=== PATIENT | male | born 1980 | race Hispanic/Latino ===

== ENCOUNTER 2018-04-17 15:04 | Emergency (ER) | payer MEDICAID ==
[2018-04-17 15:14] VITALS: BP 140/86; PULSE 98; RESP 18; TEMP 98.1; O2SAT 99
--- NOTE | 2018-04-17 15:33 | ED PDOC ---
HPI: Abdomen Time Seen by Provider: 04/17/18 15:30 Chief Complaint (Nursing): Abdominal Pain Chief Complaint (Provider): ABD PAIN History Per: Patient (37 Y/O MALE HERE FOR EVALUATION OF ONGOING INTERMITTENT ABDOMINAL PAIN. HAS BEEN SEEN BY GI DR. CAVAZOS AND HAD CT OF ABD YESTERDAY. NOTES H/O HIATAL HERNIA SX 10/2017. NOTES PAIN CHANGES LOCATION IN ABDOMEN AND HE ALSO NOTED NUMBNESS AND PIN/NEEDLES LEFT LEG WITH SITTING DOWN TODAY.) Past Medical History Reviewed: Historical Data, Nursing Documentation, Vital Signs Vital Signs: Last Vital Signs Temp 98.1 F 04/17/18 15:11 Pulse 98 H 04/17/18 15:11 Resp 18 04/17/18 15:11 BP 140/86 04/17/18 15:11 Pulse Ox 99 04/17/18 15:34 - Family History Family History: States: No Known Family Hx - Allergies Allergies/Adverse Reactions: Allergies Allergy/AdvReac Type Severity Reaction Status Date / Time famotidine Allergy RASH Verified 04/17/18 15:10 FISH Allergy RASH Verified 04/17/18 15:15 pantoprazole Allergy RASH Verified 04/17/18 15:10 tree nut Allergy RASH Verified 04/17/18 15:10 Review of Systems ROS Statement: Except As Marked, All Systems Reviewed And Found Negative Physical Exam - Reviewed Nursing Documentation Reviewed: Yes Vital Signs Reviewed: Yes - Physical Exam Appears: Positive for: Well, Non-toxic, No Acute Distress Head Exam: Positive for: ATRAUMATIC, NORMAL INSPECTION, NORMOCEPHALIC Skin: Positive for: Normal Color, Warm, DRY Eye Exam: Positive for: EOMI, Normal appearance, PERRL ENT: Positive for: Normal ENT Inspection Neck: Positive for: Normal, Painless ROM Cardiovascular/Chest: Positive for: Regular Rate, Rhythm Respiratory: Positive for: CNT, Normal Breath Sounds Gastrointestinal/Abdominal: Positive for: Normal Exam, Soft Back: Positive for: Normal Inspection Extremity: Positive for: Normal ROM Neurologic/Psych: Positive for: Alert, Oriented, Other (5/5 LOWER EXTREMITY STRENGTH; 5/5 DORSOFLEXION AND PLANTARFLEXION) - Laboratory Results Result Diagrams: 04/17/18 16:03 04/17/18 16:03 - ECG O2 Sat by Pulse Oximetry: 99 - Progress ED Course And Treament: CT REPORT REVIEWED FROM YESTERDAY 04/16/2018 Disposition - Clinical Impression Clinical Impression: Abdominal pain - Patient ED Disposition Is Patient to be Admitted: No - Disposition Disposition: Routine/Home Disposition Time: 16:33 Condition: FAIR Instructions: Acute Abdomen (Belly Pain), Adult (DC), Ulcer and Gastritis Diet Forms: [employer] (Welsh), [facility] ED School/Work Excuse
[2018-04-17 16:10] LABS: BASO % 0.5 % (0.0-2.0); EOS # 0.2 K/uL (0.0-0.7); EOS % 2.6 % (0.0-4.0); HEMOGLOBIN 15.5 g/dL (12.0-18.0); LYMPH # 1.7 K/uL (1.0-4.3); LYMPH % 27.7 % (20.0-40.0); MEAN CELL VOLUME 85.7 fl (80.0-94.0); MEAN CORPUSCULAR HEMOGLOBIN 30.3 pg (27.0-31.0); MEAN CORPUSCULAR HGB CONC 35.3 g/dL (33.0-37.0); MEAN PLATELET VOLUME 8.3 fl (7.2-11.7); MONO # 0.6 K/uL (0.0-0.8); MONO % 9.8 % (0.0-10.0); NEUT # 3.7 K/uL (1.8-7.0); NEUT % 59.4 % (50.0-75.0); NRBC % 0.7 % (0.0-0.0); RBC 5.11 Mil/uL (4.40-5.90); RED CELL DISTRIBUTION WIDTH 13.6 % (11.5-14.5); WHITE BLOOD COUNT 6.2 K/uL (4.8-10.8)
[2018-04-17 16:20] LABS: URINE AMORPHOUS SEDIMENT RARE /ul (<OCC); URINE BILIRUBIN NEGATIVE (NEGATIVE); URINE BLOOD NEGATIVE (NEGATIVE); URINE CLARITY SLIGHTY-CLOUDY (Clear); URINE COLOR YELLOW (YELLOW); URINE GLUCOSE (UA) NEG (Normal); URINE LEUKOCYTE ESTERASE NEG Leu/uL (Negative); URINE PROTEIN NEGATIVE (NEGATIVE)
[2018-04-17 16:24] LABS: ALB/GLOB RATIO 1.5 (1.0-2.1); ALBUMIN 4.4 g/dL (3.5-5.0); ALT/SGPT 51 U/L (21-72); AST/SGOT 30 U/L (17-59); BLOOD UREA NITROGEN 16 mg/dl (9-20); CALCIUM 9.1 mg/dL (8.4-10.2); GFR AFRICAN-AMERICAN > 60; GFR NON-AFRICAN AMERICAN > 60; LIPASE 68 U/L (23-300)
== END 2018-04-17 17:13 | disposition home or self-care (01) ==
LOC: H.ER 15:04
DX: R10.9 Unspecified abdominal pain (principal); R20.2 Paresthesia of skin

== ENCOUNTER 2018-06-04 00:13 | Emergency (ER) | payer MEDICAID ==
[2018-06-04 00:37] VITALS: BP 126/75; PULSE 72; RESP 16; TEMP 97.9; O2SAT 97
[2018-06-04 01:14] LABS: BASO % 0.7 % (0.0-2.0); EOS # 0.3 K/uL (0.0-0.7); EOS % 5.2 % (0.0-4.0); HEMOGLOBIN 14.5 g/dL (12.0-18.0); LYMPH # 2.1 K/uL (1.0-4.3); LYMPH % 34.6 % (20.0-40.0); MEAN CELL VOLUME 87.8 fl (80.0-94.0); MEAN CORPUSCULAR HGB CONC 34.2 g/dL (33.0-37.0); MEAN PLATELET VOLUME 9.1 fl (7.2-11.7); MONO # 0.7 K/uL (0.0-0.8); MONO % 12.1 % (0.0-10.0); NEUT # 2.8 K/uL (1.8-7.0); NEUT % 47.4 % (50.0-75.0); NRBC % 0.1 % (0.0-0.0); RBC 4.82 Mil/uL (4.40-5.90); RED CELL DISTRIBUTION WIDTH 13.6 % (11.5-14.5)
[2018-06-04 01:19] LABS: ALB/GLOB RATIO 1.6 (1.0-2.1); ALBUMIN 4.2 g/dL (3.5-5.0); ALT/SGPT 36 U/L (21-72); AST/SGOT 29 U/L (17-59); BLOOD UREA NITROGEN 16 mg/dl (9-20); CALCIUM 9.1 mg/dL (8.4-10.2); GFR AFRICAN-AMERICAN > 60; GFR NON-AFRICAN AMERICAN > 60
--- NOTE | 2018-06-04 01:25 | ED PDOC ---
Lower Extremity Pain/Injury Time Seen by Provider: 06/04/18 00:15 Chief Complaint (Nursing): Lower Extremity Problem/Injury Chief Complaint (Provider): left leg pain History Per: Patient History/Exam Limitations: no limitations Onset/Duration Of Symptoms: Days (x4 months), Worse Since (x2 days) Current Symptoms Are (Timing): Still Present Additional Complaint(s): Michele Alcantara is a 37 year old male, with no significant past medical history , who presents to the emergency department complaining of a left leg pain onset for x4 months but worst for the past x2 days. Patient reports he did have some back pain for which he had an outpatient MRI done that showed some disc herniation. He hasn't taken any pain medications. He denies any fever, chills, vomiting, weakness, saddle anesthesia, recent trauma or injuries. No further medical complaints. pt follows w orthopedics and p rimary doc. PMD: None provided. Past Medical History Reviewed: Historical Data, Nursing Documentation, Vital Signs Vital Signs: Last Vital Signs Temp 97.9 F 06/04/18 00:34 Pulse 72 06/04/18 00:34 Resp 16 06/04/18 00:34 BP 126/75 06/04/18 00:34 Pulse Ox 97 06/04/18 00:34 - Medical History PMH: No Chronic Diseases - Surgical History Surgical History: No Surg Hx - Family History Family History: States: No Known Family Hx - Social History Alcohol: None Drugs: Denies - Immunization History Hx Tetanus Toxoid Vaccination: No Hx Influenza Vaccination: No Hx Pneumococcal Vaccination: No - Allergies Allergies/Adverse Reactions: Allergies Allergy/AdvReac Type Severity Reaction Status Date / Time famotidine Allergy RASH Verified 04/17/18 15:10 FISH Allergy RASH Verified 04/17/18 15:15 pantoprazole Allergy RASH Verified 04/17/18 15:10 tree nut Allergy RASH Verified 04/17/18 15:10 Review of Systems ROS Statement: Except As Marked, All Systems Reviewed And Found Negative Constitutional: Negative for: Fever, Chills Gastrointestinal: Negative for: Vomiting Musculoskeletal: Positive for: Leg Pain (left ) Neurological: Negative for: Weakness (saddle anesthesia) Physical Exam - Reviewed Nursing Documentation Reviewed: Yes Vital Signs Reviewed: Yes - Physical Exam Appears: Positive for: Non-toxic, No Acute Distress Head Exam: Positive for: ATRAUMATIC, NORMAL INSPECTION, NORMOCEPHALIC Skin: Positive for: Normal Color, Warm, Dry Eye Exam: Positive for: Normal appearance, EOMI, PERRL Neck: Positive for: Painless ROM, Supple Cardiovascular/Chest: Positive for: Regular Rate, Rhythm. Negative for: Murmur Respiratory: Positive for: Normal Breath Sounds. Negative for: Respiratory Distress Gastrointestinal/Abdominal: Positive for: Normal Exam, Soft. Negative for: Tenderness, Guarding, Rebound Back: Positive for: Normal Inspection. Negative for: L CVA Tenderness, R CVA Tenderness, Vertebral Tenderness Extremity: Positive for: Normal ROM (upper and lower extremities), Capillary Refill (normal). Negative for: Tenderness, Pedal Edema, Calf Tenderness, Deformity, Swelling Neurologic/Psych: Positive for: Alert, Oriented (x3), Gait (steady). Negative for: Motor/Sensory Deficits (no focal deficits), Aphasia, Facial Droop - Laboratory Results Result Diagrams: 06/04/18 01:00 06/04/18 01:00 - ECG O2 Sat by Pulse Oximetry: 97 (RA) Pulse Ox Interpretation: Normal Medical Decision Making Medical Decision Making: Time: 00:35 Initial Impression: left leg pain Initial Plan: --CMP --CBC w/ differential --Toradol 30 mg IV --Reevaluation 02:21 -Labs normal, patient is feeling better 02:24 -Upon provider reevaluation patient is feeling better, is medically stable, and requires no further treatment in the ED at this time. Patient will be discharged home. Counseling was provided and all questions were answered regarding diagnosis and need for follow up with orthopedist. There is agreement to discharge plan. Return if symptoms persist or worsen. ----- Scribe Attestation: Documented by Doron Byrnes, acting as a scribe for Irving Au MD. Provider Scribe Attestation: All medical record entries made by the Scribe were at my direction and personally dictated by me. I have reviewed the chart and agree that the record accurately reflects my personal performance of the history, physical exam, medical decision making, and the department course for this patient. I have also personally directed, reviewed, and agree with the discharge instructions and disposition. Disposition - Clinical Impression Clinical Impression: Chronic leg pain - Patient ED Disposition Is Patient to be Admitted: No Counseled Patient/Family Regarding: Studies Performed, Diagnosis, Need For Followup - Disposition Disposition: Routine/Home Disposition Time: 02:24 Condition: STABLE Additional Instructions: follow up with your primary doctor/orthopedist in 1-2 days for reevaluation take tylenol or motrin for pain return to the ED with any worsening or concerning symptoms Instructions: Chronic Pain Forms: [employer] (Kittitian)
== END 2018-06-04 02:57 | disposition home or self-care (01) ==
LOC: H.ER 00:13
DX: M79.605 Pain in left leg (principal); G89.29 Other chronic pain
CPT/HCPCS: 80053; 85025; 96374; 99283; J1885

== ENCOUNTER 2018-06-12 16:36 | Emergency (ER) | payer MEDICAID ==
[2018-06-12 16:56] VITALS: BP 118/76; PULSE 71; RESP 16; TEMP 98.4; O2SAT 97
--- NOTE | 2018-06-12 17:44 | ED PDOC ---
HPI: Back Time Seen by Provider: 06/12/18 16:56 Chief Complaint (Nursing): Lower Extremity Problem/Injury Chief Complaint (Provider): Back Pain, L leg pain History Per: Patient History/Exam Limitations: no limitations Onset/Duration Of Symptoms: Other (x few months) Current Symptoms Are (Timing): Intermittent Episodes Additional History Per: Prior Records Additional Complaint(s): 37-year-old male presents to ED for evaluation of left lower back pain that radiates into the left lower extremity, ongoing for the past few months. Patient states he recently has been managing current symptoms with Naproxen, however his pain was unrelieved after his last dose at 6am this morning prompting ED visit. (-) falls, (-) trauma. Patient reports he has an upcoming MRI for his back on Saturday (06/14/18) and an upcoming Orthopedic appointment with Dr. Nash on Saturday (06/16/18). Otherwise, (-) fever, (-) chills, (-) numbness, (-) weakness, (-) urinary symptoms, (-) abdominal pain, (-) n/v/d, (- ) rash, (-) saddle anesthesia, (-) incontinence (-) chest pain (-) SOB. Patient was seen here on June 04 for the same complaint; labs were unremarkable and patient was advised to follow up outpatient. PMD: Bandar Man Past Medical History Reviewed: Historical Data, Nursing Documentation, Vital Signs Vital Signs: Last Vital Signs Temp 98.4 F 06/12/18 16:51 Pulse 71 06/12/18 16:51 Resp 16 06/12/18 16:51 BP 118/76 06/12/18 16:51 Pulse Ox 97 06/12/18 16:51 - Medical History PMH: Chronic Pain (back) - Surgical History Surgical History: No Surg Hx - Family History Family History: States: Unknown Family Hx - Social History Current smoker - smoking cessation education provided: No Alcohol: None Drugs: Denies - Home Medications Home Medications: Ambulatory Orders Medication Instructions Recorded Acetaminophen [Acetaminophen 8 650 mg PO Q8 #28 tablet.er 06/12/18 Hour] Meloxicam [Mobic] 15 mg PO DAILY #10 tab 06/12/18 - Allergies Allergies/Adverse Reactions: Allergies Allergy/AdvReac Type Severity Reaction Status Date / Time famotidine Allergy RASH Verified 06/12/18 16:49 FISH Allergy RASH Verified 06/12/18 16:49 pantoprazole Allergy RASH Verified 06/12/18 16:49 tree nut Allergy RASH Verified 06/12/18 16:49 Review of Systems ROS Statement: Except As Marked, All Systems Reviewed And Found Negative Constitutional: Negative for: Fever, Chills Gastrointestinal: Negative for: Nausea, Vomiting, Diarrhea Genitourinary Male: Negative for: Dysuria, Incontinence, Hematuria Musculoskeletal: Positive for: Back Pain. Negative for: Other (saddle anesthesia) Skin: Negative for: Rash Neurological: Negative for: Weakness, Numbness Physical Exam - Reviewed Nursing Documentation Reviewed: Yes Vital Signs Reviewed: Yes - Physical Exam Appears: Positive for: Well, Non-toxic, No Acute Distress Head Exam: Positive for: ATRAUMATIC, NORMOCEPHALIC Skin: Positive for: Normal Color, Warm, Dry Eye Exam: Positive for: EOMI, PERRL ENT: Positive for: Other (Mucus membranes moist. Airway patent, (-) stridor. ) Cardiovascular/Chest: Positive for: Regular Rate, Rhythm Respiratory: Positive for: Normal Breath Sounds. Negative for: Respiratory Distress Gastrointestinal/Abdominal: Positive for: Soft. Negative for: Tenderness, Distended, Guarding, Rebound Back: Positive for: Other ((+) Left paralumbar and left sciatic notch tenderness ). Negative for: L CVA Tenderness, R CVA Tenderness, Vertebral Tenderness Extremity: Positive for: Normal ROM. Negative for: Deformity Neurologic/Psych: Positive for: Alert, Oriented (x3), Gait ((+) Ambulatory with steady gait). Negative for: Aphasia, Facial Droop - ECG O2 Sat by Pulse Oximetry: 97 (RA) Pulse Ox Interpretation: Normal Medical Decision Making Medical Decision Makin-year-old male with [id number] back pain / sciatica Plan: - Flexeril 10 mg PO (Not driving) - Toradol 30 mg IM - Re-evaluation 1819 On re-evaluation, patient reports improvement of symptoms. On exam, patient remains AAOx3, in no acute distress. Neck is supple, lungs CTA, cardiac RRR, abdomen is soft and non-tender, neuro exam shows no focal findings. VSS, stable for discharge. Diagnostic results d/w the patient in great detail. Dx of acute on chronic back pain, sciatica d/w the patient. Based on history, exam and diagnostic results plan will be for discharge and outpatient follow up as scheduled. Advised to follow up with primary care physician/ortho without fail. Advised to take medication as prescribed. Return to the emergency room at any time for any new or worsening symptoms. Patient states he fully agrees with and understands discharge instructions. States that he agrees with the plan and disposition. Verbalized and repeated discharge instructions and plan. I have given the patient opportunity to ask any additional questions. Scribe Attestation: Documented by Domingo Lyn, acting as a scribe for Corin Steele PA-C. Provider Scribe Attestation: All medical record entries made by the Scribe were at my direction and personally dictated by me. I have reviewed the chart and agree that the record accurately reflects my personal performance of the history, physical exam, medical decision making, and the department course for this patient. I have also personally directed, reviewed, and agree with the discharge instructions and disposition. Disposition - Clinical Impression Clinical Impression: Chronic back pain, Radicular pain of lower extremity, Sciatica - Patient ED Disposition Is Patient to be Admitted: No Counseled Patient/Family Regarding: Diagnosis, Need For Followup, Rx Given - Disposition Referrals: Bandar Man MD [Family Provider] - Disposition: Routine/Home Disposition Time: 18:21 Condition: STABLE Additional Instructions: FOLLOW UP WITH PMD/ORTHO PLANNED RETURN TO ED WITH ANY NEW OR WORSENING SYMPTOMS. FOLLOW UP FOR MRI EVALUATION SCHEDULED ON SATURDAY. Prescriptions: Acetaminophen [Acetaminophen 8 Hour] 650 mg PO Q8 #28 tablet.er Meloxicam [Mobic] 15 mg PO DAILY #10 tab Instructions: Sciatica, Chronic Pain, Radiculopathy Forms: [employer] (Armenian) Print Language: MOZAMBICAN - POA Present On Arrival: None
== END 2018-06-12 18:48 | disposition home or self-care (01) ==
LOC: H.ER 16:36
DX: G89.29 Other chronic pain (principal); M54.32 Sciatica, left side
CPT/HCPCS: 96372; 99282; J1885

== ENCOUNTER 2018-08-02 14:14 | Emergency (ER) | payer SELFPAY ==
[2018-08-02 14:32] VITALS: BP 130/75; PULSE 90; RESP 18; TEMP 98.3; O2SAT 96
[2018-08-02 15:32] LABS: BASO % 0.3 % (0.0-2.0); EOS % 0.1 % (0.0-4.0); HEMOGLOBIN 15.8 g/dL (12.0-18.0); LYMPH # 1.1 K/uL (1.0-4.3); LYMPH % 11.1 % (20.0-40.0); MEAN CELL VOLUME 87.5 fl (80.0-94.0); MEAN CORPUSCULAR HEMOGLOBIN 30.1 pg (27.0-31.0); MEAN CORPUSCULAR HGB CONC 34.4 g/dL (33.0-37.0); MONO # 0.6 K/uL (0.0-0.8); NEUT % 82.5 % (50.0-75.0); RBC 5.24 Mil/uL (4.40-5.90); RED CELL DISTRIBUTION WIDTH 13.9 % (11.5-14.5); WHITE BLOOD COUNT 9.7 K/uL (4.8-10.8)
[2018-08-02 15:37] LABS: ALB/GLOB RATIO 1.6 (1.0-2.1); ALBUMIN 4.8 g/dL (3.5-5.0); ALT/SGPT 24 U/L (21-72); AST/SGOT 25 U/L (17-59); BLOOD UREA NITROGEN 17 mg/dl (9-20); CALCIUM 9.4 mg/dL (8.4-10.2); GFR NON-AFRICAN AMERICAN > 60
--- NOTE | 2018-08-02 15:38 | ED PDOC ---
HPI: General Adult Time Seen by Provider: 08/02/18 15:24 Chief Complaint (Nursing): ENT Problem Chief Complaint (Provider): Ear pain History Per: Patient History/Exam Limitations: no limitations Onset/Duration Of Symptoms: Days (x10) Additional Complaint(s): Michele Alcantara, a 37 year old male with no significant past medical history, presents to the emergency department with pain and ringing in his ears onset 10 days. Patient notes decreased hearing. He states he initially was seen by his primary care physician and is taking oral medication,cefuroxime, and ear drops. Patient states the pain persists and feels he has trouble with gait but denies any fever or chills. No further medical complaints. Past Medical History Reviewed: Historical Data, Nursing Documentation, Vital Signs Vital Signs: Last Vital Signs Temp 98.3 F 08/02/18 14:29 Pulse 90 08/02/18 14:29 Resp 18 08/02/18 14:29 BP 130/75 08/02/18 14:29 Pulse Ox 96 08/02/18 16:04 - Medical History PMH: Chronic Pain (back) - Family History Family History: States: Unknown Family Hx - Immunization History Hx Tetanus Toxoid Vaccination: No Hx Influenza Vaccination: No Hx Pneumococcal Vaccination: No - Home Medications Home Medications: Ambulatory Orders Medication Instructions Recorded Cefuroxime Axetil [Cefuroxime] 08/02/18 Neomycin/Polymyxin B/Hydrocort 2 drop OD 08/02/18 [[id number]-Wn Ear Susp] - Allergies Allergies/Adverse Reactions: Allergies Allergy/AdvReac Type Severity Reaction Status Date / Time famotidine Allergy RASH Verified 06/12/18 16:49 FISH Allergy RASH Verified 06/12/18 16:49 pantoprazole Allergy RASH Verified 06/12/18 16:49 Penicillins Allergy RASH Verified 08/02/18 14:29 tree nut Allergy RASH Verified 06/12/18 16:49 Review of Systems ROS Statement: Except As Marked, All Systems Reviewed And Found Negative Constitutional: Negative for: Fever, Chills ENT: Positive for: Ear Pain, Other (ringing in ears) Neurological: Positive for: Other (feels he has trouble with gait) Physical Exam - Reviewed Nursing Documentation Reviewed: Yes Vital Signs Reviewed: Yes - Physical Exam Appears: Positive for: Well, Non-toxic, No Acute Distress Head Exam: Positive for: ATRAUMATIC, NORMAL INSPECTION, NORMOCEPHALIC ENT: Positive for: Other (mild cerumen, mild otosclerosis, no edema, exudate or erythema). Negative for: TM Is/Are (bulging) Cardiovascular/Chest: Positive for: Regular Rate, Rhythm Respiratory: Positive for: CNT, Normal Breath Sounds Neurologic/Psych: Positive for: Alert, Oriented, Gait (normal), Other (5/5 strength). Negative for: Facial Droop - Laboratory Results Result Diagrams: 08/02/18 15:16 08/02/18 15:16 - ECG O2 Sat by Pulse Oximetry: 96 (RA) Pulse Ox Interpretation: Normal - Progress ED Course And Treament: HEAD CT:Total exam DLP = mGy-cm. This CT exam was performed using one or more of the following dose reduction techniques: Automated exposure control, adjustment of the mA and/or kV according to patient size, and/or use of iterative reconstruction technique. FINDINGS: HEMORRHAGE: No intracranial hemorrhage. BRAIN: No mass effect or edema. No atrophy or chronic microvascular ischemic changes. VENTRICLES: Unremarkable. No hydrocephalus. CALVARIUM: Unremarkable. PARANASAL SINUSES: Unremarkable as visualized. No significant inflammatory changes. MASTOID AIR CELLS: Unremarkable as visualized. No inflammatory changes. OTHER FINDINGS: None. IMPRESSION: No intracranial hemorrhage. PATIENT STATES HE HAS BEEN PLACED ON MEDROL DOSE PACK YESTERDAY. ADVISED F/U WITH ENT AND CONTINUE WITH STEROIDS Medical Decision Making Medical Decision Making: Time: 15:24 Initial Impression: Initial Plan: --CT head w/o contrast --CMP --Magnesium --CBC w/differential Time:15:[address] FINDINGS: HEMORRHAGE: No intracranial hemorrhage. BRAIN: No mass effect or edema. No atrophy or chronic microvascular ischemic changes. VENTRICLES: Unremarkable. No hydrocephalus. CALVARIUM: Unremarkable. PARANASAL SINUSES: Unremarkable as visualized. No significant inflammatory changes. MASTOID AIR CELLS: Unremarkable as visualized. No inflammatory changes. OTHER FINDINGS: None. IMPRESSION: No intracranial hemorrhage. Scribe Attestation: Documented by Liyah Cueto, acting as a scribe for Jocelyn Garvey PA-C. Provider Scribe Attestation: All medical record entries made by the Scribe were at my direction and personally dictated by me. I have reviewed the chart and agree that the record accurately reflects my personal performance of the history, physical exam, medical decision making, and the department course for this patient. I have also personally directed, reviewed, and agree with the discharge instructions and disposition. Disposition - Clinical Impression Clinical Impression: Tinnitus - Patient ED Disposition Is Patient to be Admitted: No - Disposition Referrals: Floyd Ibrahim MD [Staff Provider] - Disposition: Routine/Home Disposition Time: 16:30 Condition: FAIR Instructions: Tinnitus (Ringing in the Ears)
--- NOTE | 2018-08-02 15:39 | CT ---
Date of service: 08/02/2018 PROCEDURE: CT HEAD WITHOUT CONTRAST. HISTORY: for tinnitus; evaluate rt ear/ r/o mastoiditis COMPARISON: None available. TECHNIQUE: Axial computed tomography images were obtained through the head/brain without intravenous contrast. Radiation dose: Total exam DLP = mGy-cm. This CT exam was performed using one or more of the following dose reduction techniques: Automated exposure control, adjustment of the mA and/or kV according to patient size, and/or use of iterative reconstruction technique. FINDINGS: HEMORRHAGE: No intracranial hemorrhage. BRAIN: No mass effect or edema. No atrophy or chronic microvascular ischemic changes. VENTRICLES: Unremarkable. No hydrocephalus. CALVARIUM: Unremarkable. PARANASAL SINUSES: Unremarkable as visualized. No significant inflammatory changes. MASTOID AIR CELLS: Unremarkable as visualized. No inflammatory changes. OTHER FINDINGS: None. IMPRESSION: No intracranial hemorrhage.
== END 2018-08-02 16:33 | disposition home or self-care (01) ==
LOC: H.ER 14:14
DX: H93.01 Transient ischemic deafness (principal); Z88.0 Allergy status to penicillin

== ENCOUNTER 2018-08-14 17:58 | Emergency (ER) | payer MEDICAID ==
[2018-08-14 18:14] VITALS: BP 127/81; PULSE 90; RESP 18; TEMP 98.2; O2SAT 98
--- NOTE | 2018-08-14 18:46 | ED PDOC ---
HPI: CCC, URI, Sore Throat Time Seen by Provider: 08/14/18 18:43 Chief Complaint (Nursing): ENT Problem Chief Complaint (Provider): right ear tinnitus History Per: Patient (38 y/o male here with right ear tinnitus ongoing x weeks. Patient states he was initially treated with eardrops and then subsequently with oral antibiotics. Was seen in ED [facility] 08/02 and started on medrol dose pack. Notes improvement with symptoms but feels symptoms worsened after stopping medication. Unable to f/u with ENT as advised 08/02/2018 b/c he lost insurance.) Past Medical History Reviewed: Historical Data, Nursing Documentation, Vital Signs Vital Signs: Last Vital Signs Temp 98.2 F 08/14/18 18:11 Pulse 90 08/14/18 18:11 Resp 18 08/14/18 18:11 BP 127/81 08/14/18 18:11 Pulse Ox 98 08/14/18 18:55 - Medical History PMH: Chronic Pain (back) - Family History Family History: States: Unknown Family Hx - Immunization History Hx Tetanus Toxoid Vaccination: No Hx Influenza Vaccination: No Hx Pneumococcal Vaccination: No - Home Medications Home Medications: Ambulatory Orders Medication Instructions Recorded Cefuroxime Axetil [Cefuroxime] 08/02/18 Neomycin/Polymyxin B/Hydrocort 2 drop OD 08/02/18 [[id number]-Lilwoulop-Xl Ear Susp] - Allergies Allergies/Adverse Reactions: Allergies Allergy/AdvReac Type Severity Reaction Status Date / Time famotidine Allergy SHORTNESS Verified 08/14/18 18:10 OF BREATH FISH Allergy SHORTNESS Verified 08/14/18 18:10 OF BREATH pantoprazole Allergy SHORTNESS Verified 08/14/18 18:10 OF BREATH Penicillins Allergy SHORTNESS Verified 08/14/18 18:10 OF BREATH tree nut Allergy SHORTNESS Verified 08/14/18 18:10 OF BREATH Review of Systems ROS Statement: Except As Marked, All Systems Reviewed And Found Negative Physical Exam - Reviewed Nursing Documentation Reviewed: Yes Vital Signs Reviewed: Yes - Physical Exam Appears: Positive for: Well, Non-toxic, No Acute Distress Head Exam: Positive for: ATRAUMATIC, NORMAL INSPECTION, NORMOCEPHALIC Skin: Positive for: Normal Color, Warm, DRY Eye Exam: Positive for: EOMI, Normal appearance, PERRL ENT: Positive for: Normal ENT Inspection Neck: Positive for: Normal, Painless ROM Cardiovascular/Chest: Positive for: Regular Rate, Rhythm Respiratory: Positive for: CNT, Normal Breath Sounds Gastrointestinal/Abdominal: Positive for: Normal Exam, Soft Back: Positive for: Normal Inspection Extremity: Positive for: Normal ROM Neurologic/Psych: Positive for: Alert, Oriented - ECG O2 Sat by Pulse Oximetry: 98 Disposition - Clinical Impression Clinical Impression: Tinnitus - Patient ED Disposition Is Patient to be Admitted: No - Disposition Referrals: Bowen Vega MD [Staff Provider] - Disposition: Routine/Home Disposition Time: 18:46 Condition: FAIR Additional Instructions: If needed, contact [phone] to schedule appointment outpatient with ENT clinic at [facility]. After making appointment, contact [phone] to obtain [facility] care. Instructions: Tinnitus (Ringing in the Ears)
== END 2018-08-14 19:31 | disposition home or self-care (01) ==
LOC: H.ER 17:58
DX: H93.11 Tinnitus, right ear (principal); G89.29 Other chronic pain; Z88.0 Allergy status to penicillin

== ENCOUNTER 2018-10-07 20:23 | Emergency (ER) | payer MEDICAID ==
[2018-10-07 20:52] VITALS: RESP 18
--- NOTE | 2018-10-07 22:26 | ED PDOC ---
HPI: Back Time Seen by Provider: 10/07/18 22:00 Chief Complaint (Nursing): Back Pain Chief Complaint (Provider): low back pain History Per: Patient History/Exam Limitations: no limitations Onset/Duration Of Symptoms: Days (1) Current Symptoms Are (Timing): Still Present Exacerbating Factor(s): Turning, Movement Additional Complaint(s): 38 y/o male history of lspine disc herniations presents for evaluation of acute on chronic low back pain x 1 day. associated radiation of pain down left leg. Patient states Meloxicam daily usually helps with the pain but today he had a flare up and is requesting a muscle relaxant which has helped in the past. Denies fever, nausea/vomiting, abdominal pain, numbness/weakness lower extremities, bowel/bladder incontinence, urinary symptoms, new falls/trauma. Past Medical History Reviewed: Historical Data, Nursing Documentation, Vital Signs Vital Signs: Last Vital Signs Temp 98.7 F 10/07/18 20:51 Pulse 85 10/07/18 20:51 Resp 18 10/07/18 20:51 BP 134/67 10/07/18 20:51 Pulse Ox 100 10/07/18 20:51 - Medical History PMH: Back Problems, Chronic Pain (back) - Surgical History Surgical History: Hernia Repair - Family History Family History: States: Unknown Family Hx - Immunization History Hx Tetanus Toxoid Vaccination: No Hx Influenza Vaccination: No Hx Pneumococcal Vaccination: No - Home Medications Home Medications: Ambulatory Orders Medication Instructions Recorded Cefuroxime Axetil [Cefuroxime] 08/02/18 Neomycin/Polymyxin B/Hydrocort 2 drop OD 08/02/18 [Kipgniej-Msodfzsxn-Ab Ear Susp] Cyclobenzaprine [Cyclobenzaprine 10 mg PO HS PRN #5 tab 10/07/18 HCl] - Allergies Allergies/Adverse Reactions: Allergies Allergy/AdvReac Type Severity Reaction Status Date / Time famotidine Allergy SHORTNESS Verified 10/07/18 20:48 OF BREATH FISH Allergy SHORTNESS Verified 10/07/18 20:48 OF BREATH pantoprazole Allergy SHORTNESS Verified 10/07/18 20:48 OF BREATH Penicillins Allergy SHORTNESS Verified 10/07/18 20:48 OF BREATH tree nut Allergy SHORTNESS Verified 10/07/18 20:48 OF BREATH Review of Systems ROS Statement: Except As Marked, All Systems Reviewed And Found Negative Musculoskeletal: Positive for: Back Pain Physical Exam - Reviewed Nursing Documentation Reviewed: Yes Vital Signs Reviewed: Yes - Physical Exam Appears: Positive for: Well, Non-toxic, No Acute Distress Head Exam: Positive for: ATRAUMATIC, NORMAL INSPECTION, NORMOCEPHALIC Skin: Positive for: Normal Color Eye Exam: Positive for: Normal appearance ENT: Positive for: Normal ENT Inspection Neck: Positive for: Normal, Painless ROM Cardiovascular/Chest: Positive for: Regular Rate, Rhythm Respiratory: Positive for: Normal Breath Sounds Gastrointestinal/Abdominal: Positive for: Normal Exam Back: Positive for: Normal Inspection, Muscle Spasm (lspine paravertebral tenderness. left gluteal tenderness). Negative for: L CVA Tenderness, R CVA Tenderness, Vertebral Tenderness, Decreased ROM Extremity: Positive for: Normal ROM Neurologic/Psych: Positive for: Alert, Oriented (x3) - ECG O2 Sat by Pulse Oximetry: 100 - Progress ED Course And Treament: Toradol IM, flexeril PO Patient states he is feeling better on re-eval. Patient educated on findings, discharged with rx Flexeril Advised follow up global marketing specialist as scheduled Continue Meloxicam as previously prescribed Return precautions given Disposition - Clinical Impression Clinical Impression: Chronic back pain, Radicular pain of lower extremity - Patient ED Disposition Is Patient to be Admitted: No Counseled Patient/Family Regarding: Diagnosis, Need For Followup, Rx Given - Disposition Disposition: Routine/Home Disposition Time: 23:56 Condition: IMPROVED Prescriptions: Cyclobenzaprine [Cyclobenzaprine HCl] 10 mg PO HS PRN #5 tab PRN Reason: Muscle Spasm Instructions: Radiculopathy, Low Back Pain in Adults Forms: [employer] (Micronesian)
[2018-10-08 00:39] VITALS: BP 128/71; PULSE 80; TEMP 98.5; O2SAT 99
== END 2018-10-08 00:25 | disposition home or self-care (01) ==
LOC: H.ER 20:23
DX: M54.5 Low back pain (principal); M54.15 Radiculopathy, thoracolumbar region; G89.29 Other chronic pain; Z88.0 Allergy status to penicillin
CPT/HCPCS: 96372; 99284; J1885

== ENCOUNTER 2018-10-13 18:53 | Emergency (ER) | payer MEDICAID ==
--- NOTE | 2018-10-13 22:07 | ED PDOC ---
HPI: Back Time Seen by Provider: 10/13/18 20:04 Chief Complaint (Nursing): Back Pain Chief Complaint (Provider): Back Pain History Per: Patient History/Exam Limitations: no limitations Onset/Duration Of Symptoms: Hrs Current Symptoms Are (Timing): Still Present Quality Of Discomfort: "Pain" Exacerbating Factor(s): Movement Additional Complaint(s): 38 year old male with history of lumbar spine pain and disc herniation presents to the ER for an evaluation of lower back pain. Patient was seen in ER 1 weeks ago for flare up. He was treated with muscle relaxer and anti-inflammatory meds and sent home with improvement in pain. Today, patient was well this morning and when he went for walk, he suddenly began having acute left lower back pain radiating to buttock to left leg. There is weakness in left leg. Further states, pain from left lower back to left abdomen has occurred several times in the past. Denies urinary incontinence, fall, trauma or dizziness. Past Medical History Reviewed: Historical Data, Nursing Documentation, Vital Signs Vital Signs: Last Vital Signs Temp 98.6 F 10/13/18 19:54 Pulse 80 10/13/18 19:54 Resp 18 10/13/18 19:54 BP 132/81 10/13/18 19:54 Pulse Ox 100 10/13/18 19:54 - Medical History PMH: Asthma, Back Problems, Chronic Pain (back) Denies: Chronic Kidney Disease - Surgical History Surgical History: Hernia Repair - Family History Family History: States: Unknown Family Hx - Immunization History Hx Tetanus Toxoid Vaccination: No Hx Influenza Vaccination: No Hx Pneumococcal Vaccination: No - Home Medications Home Medications: Ambulatory Orders Medication Instructions Recorded Cefuroxime Axetil [Cefuroxime] 08/02/18 Neomycin/Polymyxin B/Hydrocort 2 drop OD 08/02/18 [Wkakqslb-Clmnddhgx-Dl Ear Susp] Cyclobenzaprine [Cyclobenzaprine 10 mg PO HS PRN #5 tab 10/07/18 HCl] Cyclobenzaprine [Cyclobenzaprine 10 mg PO Q8H PRN 5 Days tab 10/13/18 HCl] - Allergies Allergies/Adverse Reactions: Allergies Allergy/AdvReac Type Severity Reaction Status Date / Time famotidine Allergy SHORTNESS Verified 10/13/18 19:54 OF BREATH FISH Allergy SHORTNESS Verified 10/13/18 19:54 OF BREATH pantoprazole Allergy SHORTNESS Verified 10/13/18 19:54 OF BREATH Penicillins Allergy SHORTNESS Verified 10/13/18 19:54 OF BREATH tree nut Allergy SHORTNESS Verified 10/13/18 19:54 OF BREATH Review of Systems ROS Statement: Except As Marked, All Systems Reviewed And Found Negative Constitutional: Negative for: Fever, Chills Genitourinary Male: Negative for: Dysuria, Frequency, Incontinence Musculoskeletal: Positive for: Back Pain Neurological: Negative for: Dizziness Physical Exam - Reviewed Nursing Documentation Reviewed: Yes Vital Signs Reviewed: Yes - Physical Exam Appears: Positive for: Uncomfortable Head Exam: Positive for: ATRAUMATIC, NORMAL INSPECTION, NORMOCEPHALIC Skin: Positive for: Normal Color, Warm, Dry. Negative for: Rash Eye Exam: Positive for: EOMI, Normal appearance, PERRL Neck: Positive for: Normal, Painless ROM. Negative for: Decreased ROM Cardiovascular/Chest: Positive for: Regular Rate, Rhythm. Negative for: Murmur Respiratory: Positive for: Normal Breath Sounds. Negative for: Decreased Breath Sounds, Wheezing, Respiratory Distress Back: Negative for: Normal Inspection (no paravertebral tenderness, pain on palpation on left lower back, left buttock with no ecchymosis, deformity or erythema) Extremity: Positive for: Tenderness (Mild reproducible pain into left leg with flexion at the knee), Other (Decreased strength with both passive and active flexion of knee when compared with right knee). Negative for: Deformity (Sensation intact to light touch and bilateral upper and lower extremity ) Neurologic/Psych: Positive for: Alert, Oriented (x3), Other (Strength equal bilateral extremities). Negative for: Motor/Sensory Deficits - ECG O2 Sat by Pulse Oximetry: 100 (RA) Pulse Ox Interpretation: Normal Medical Decision Making Medical Decision Making: Time: 2109 Initial Plan: Lumbar Spine w/o contrast [CT] Urine Dipstick Flexeril 10mg Toradol 30mg Reevaluation Scribe Attestation: Documented by Suzy France, acting as a scribe for Veronica Cruz PA-C Provider Scribe Attestation: All medical record entries made by the Scribe were at my direction and personally dictated by me. I have reviewed the chart and agree that the record accurately reflects my personal performance of the history, physical exam, medical decision making, and the department course for this patient. I have also personally directed, reviewed, and agree with the discharge instructions and disposition. CT lumbar spine: FINDINGS: ALIGNMENT: Bony alignment is anatomic. Mild levoscoliosis is noted. DISCS/DEGENERATIVE CHANGES: T12/L1: No significant central canal or neural foraminal stenosis. L1/L2: No significant central canal or neural foraminal stenosis. L2/L3: No significant central canal or neural foraminal stenosis. L3/4: No significant central canal or neural foraminal stenosis. L4/5: No significant central canal or neural foraminal stenosis. L5/S1: No significant central canal or neural foraminal stenosis. BONES: No acute fracture or aggressive appearing osseous lesion. SOFT TISSUES: The soft tissues are unremarkable. MISCELLANEOUS: No abnormal contrast enhancement. IMPRESSION: Mild levoscoliosis. No acute lumbar spine abnormality. Disposition - Clinical Impression Clinical Impression: Low back pain - Patient ED Disposition Is Patient to be Admitted: No Counseled Patient/Family Regarding: Studies Performed, Diagnosis, Need For Followup, Rx Given - Disposition Referrals: [facility] [place] [Outside] Disposition: Routine/Home Disposition Time: 23:30 Condition: IMPROVED Additional Instructions: avoid strenuous activity or heavy lifting for at least one week. Take Flexeril and Ibuprofen fairly regularly for the next couple of days and then as needed. F/u with orthopedist. Prescriptions: Cyclobenzaprine [Cyclobenzaprine HCl] 10 mg PO Q8H PRN 5 Days tab PRN Reason: Pain, Moderate (4-7) Instructions: Low Back Pain (DC) Forms: [employer] (Taiwanese) Print Language: PERSIAN
[2018-10-13 23:32] VITALS: BP 126/76; PULSE 73; RESP 16; TEMP 98.1
[2018-10-14 01:05] VITALS: O2SAT 100
--- NOTE | 2018-10-14 10:47 | CT ---
Date of service: 10/13/2018 PROCEDURE: CT Lumbar Spine without contrast HISTORY: acute L back pain with LLE weakness COMPARISON: None available. TECHNIQUE: Axial computed tomography images were obtained of the lumbar spine without the use of intravenous contrast. Coronal and sagittal reformatted images were created and reviewed. Radiation dose: Total exam DLP = 497.86 mGy-cm. This CT exam was performed using one or more of the following dose reduction techniques: Automated exposure control, adjustment of the mA and/or kV according to patient size, and/or use of iterative reconstruction technique. FINDINGS: VERTEBRAE: There is mild levoscoliosis in the lumbar spine. There is normal alignment of the lumbar vertebral bodies. There is normal lumbar lordosis. There is no acute fracture, spondylolysis or spondylolisthesis. Bone mineralization is normal. DISC SPACES: The disc heights are maintained. DISCS/SPINAL CANAL/NEURAL FORAMINA: Evaluation of the spinal canal and discs is limited on noncontrast CT examination. Allowing for this, L1-2: No large disc herniation, neural foraminal or spinal canal stenosis. L2-3: No large disc herniation, neural foraminal or spinal canal stenosis. L3-4: Mild posterior disc bulge without central spinal canal stenosis mild bilateral facet arthropathy contribute to mild neural foraminal narrowing. L4-5: Diffuse posterior disc bulge without central spinal canal stenosis. Moderate bilateral facet arthropathy contribute to moderate neural foraminal narrowing. L5-S1: Mild posterior disc bulge without central spinal canal stenosis. No neural foraminal narrowing. PARASPINAL SOFT TISSUES: The paraspinous soft tissues are normal. Imaged portion of the retroperitoneum is within normal limits.. OTHER FINDINGS: None. IMPRESSION: Mild levoscoliosis in the lumbar spine. No acute fracture, spondylolysis or spondylolisthesis. Mild degenerative disc disease at L3-4 and L4-5, worse at L4-5 with diffuse posterior disc bulge and moderate neural foraminal narrowing. No central spinal canal stenosis. A preliminary report was provided by [employer].
== END 2018-10-13 23:32 | disposition home or self-care (01) ==
LOC: H.ER 18:53
DX: M54.5 Low back pain (principal)
CPT/HCPCS: 72131; 96372; 99283; J1885

== ENCOUNTER 2018-11-22 09:01 | Emergency (ER) | payer MEDICAID ==
[2018-11-22 09:05] VITALS: BMI 30.7
[2018-11-22 09:08] VITALS: O2SAT 97
[2018-11-22 10:24] LABS: BASO % 0.4 % (0.0-2.0); EOS # 0.2 K/uL (0.0-0.7); EOS % 2.8 % (0.0-4.0); HEMOGLOBIN 15.7 g/dL (12.0-18.0); LYMPH # 1.5 K/uL (1.0-4.3); LYMPH % 18.3 % (20.0-40.0); MEAN CELL VOLUME 89.9 fl (80.0-94.0); MEAN CORPUSCULAR HEMOGLOBIN 29.8 pg (27.0-31.0); MEAN CORPUSCULAR HGB CONC 33.2 g/dL (33.0-37.0); MEAN PLATELET VOLUME 8.4 fl (7.2-11.7); MONO # 1.3 K/uL (0.0-0.8); MONO % 16.2 % (0.0-10.0); NEUT % 62.3 % (50.0-75.0); NRBC % 0.2 % (0.0-0.0); RBC 5.28 Mil/uL (4.40-5.90); RED CELL DISTRIBUTION WIDTH 13.5 % (11.5-14.5)
[2018-11-22 10:31] LABS: ALB/GLOB RATIO 1.5 (1.0-2.1); ALBUMIN 4.7 g/dL (3.5-5.0); ALT/SGPT 40 U/L (21-72); AST/SGOT 30 U/L (17-59); BLOOD UREA NITROGEN 21 mg/dl (9-20); CALCIUM 9.3 mg/dL (8.4-10.2); GFR NON-AFRICAN AMERICAN > 60
[2018-11-22 10:44] LABS: URINE BILIRUBIN NEGATIVE (NEGATIVE); URINE BLOOD NEGATIVE (NEGATIVE); URINE CLARITY SLIGHTY-CLOUDY (Clear); URINE COLOR YELLOW (YELLOW); URINE GLUCOSE (UA) NEG (NEGATIVE); URINE LEUKOCYTE ESTERASE NEG Leu/uL (Negative); URINE PROTEIN NEGATIVE (NEGATIVE); URINE UROBILINOGEN 0.2-1.0 mg/dL (0.2-1.0)
[2018-11-22 10:46] LABS: BARBITURATES, UR NEGATIVE (NEGATIVE); BENZODIAZEPINES, UR NEGATIVE (NEGATIVE); OPIATES, UR NEGATIVE (NEGATIVE); PHENCYCLIDINE, UR NEGATIVE (NEGATIVE)
--- NOTE | 2018-11-22 10:48 | ED PDOC ---
HPI: Back Time Seen by Provider: 11/22/18 09:18 Chief Complaint (Nursing): Back Pain Chief Complaint (Provider): Back Pain History Per: Patient History/Exam Limitations: no limitations Current Symptoms Are (Timing): Still Present Additional Complaint(s): Michele Simmons is a 38 year old male with a past medical history of back problems, asthma and hernia, presents to the emergency room complaining of lower back pain problems, onset x4 months. Patient was diagnosed herniated disc via MRI. He is under the care of Dr. Nash and he received 2 "steroid injections in the back", with the 1st one being administered x1 month ago and the 2nd administered x3 days ago. Patient reports that the pain is worsening since the shots and has started to radiate from the left lower back down to the left leg. Pain is also exacerbated with movement. He denies any trauma, weakness, fever, incontinence, hematuria, dysuria. Of note, patient took no medications to help with pain. PMD: Bandar Man Past Medical History Reviewed: Historical Data, Nursing Documentation, Vital Signs Vital Signs: Last Vital Signs Temp 97.4 F L 11/22/18 09:05 Pulse 89 11/22/18 09:05 Resp 17 11/22/18 09:05 BP 127/83 11/22/18 09:05 Pulse Ox 97 11/22/18 09:05 - Medical History PMH: Asthma, Back Problems, Chronic Pain (back) Denies: Chronic Kidney Disease - Surgical History Surgical History: Hernia Repair - Family History Family History: States: Unknown Family Hx - Immunization History Hx Tetanus Toxoid Vaccination: No Hx Influenza Vaccination: No Hx Pneumococcal Vaccination: No - Home Medications Home Medications: Ambulatory Orders Medication Instructions Recorded Cefuroxime Axetil [Cefuroxime] 08/02/18 Neomycin/Polymyxin B/Hydrocort 2 drop OD 08/02/18 [Juowpmoa-Olcvdjobt-El Ear Susp] Cyclobenzaprine [Cyclobenzaprine 10 mg PO HS PRN #5 tab 10/07/18 HCl] Cyclobenzaprine [Cyclobenzaprine 10 mg PO Q8H PRN 5 Days tab 10/13/18 HCl] Meloxicam [Mobic] 1 - 2 tab PO DAILY PRN #15 tab 11/22/18 Methocarbamol [Robaxin] 500 mg PO TID PRN #12 tablet 11/22/18 - Allergies Allergies/Adverse Reactions: Allergies Allergy/AdvReac Type Severity Reaction Status Date / Time famotidine Allergy SHORTNESS Verified 10/13/18 19:54 OF BREATH FISH Allergy SHORTNESS Verified 10/13/18 19:54 OF BREATH pantoprazole Allergy SHORTNESS Verified 10/13/18 19:54 OF BREATH Penicillins Allergy SHORTNESS Verified 10/13/18 19:54 OF BREATH tree nut Allergy SHORTNESS Verified 10/13/18 19:54 OF BREATH Review of Systems ROS Statement: Except As Marked, All Systems Reviewed And Found Negative Constitutional: Negative for: Fever Genitourinary Male: Negative for: Frequency, Incontinence, Hematuria Musculoskeletal: Positive for: Back Pain, Leg Pain Neurological: Negative for: Weakness Physical Exam - Reviewed Nursing Documentation Reviewed: Yes Vital Signs Reviewed: Yes - Physical Exam Appears: Positive for: No Acute Distress Cardiovascular/Chest: Positive for: Regular Rate, Rhythm. Negative for: Murmur Respiratory: Positive for: Normal Breath Sounds. Negative for: Respiratory Distress Gastrointestinal/Abdominal: Positive for: Normal Exam, Soft. Negative for: Tenderness Back: Positive for: Normal Inspection, Other (left sided paralumbar tenderness; (-) warmth, erythema, break in skin integrity) Extremity: Positive for: Other (left straight leg test positve at about 30 degress; strength 5/5 in lower extremities) Neurologic/Psych: Positive for: Alert, Oriented - Laboratory Results Result Diagrams: 11/22/18 10:04 11/22/18 10:04 - ECG O2 Sat by Pulse Oximetry: 97 (RA) Pulse Ox Interpretation: Normal - Radiology X-Ray: Interpreted by Me (LS spine x-ray) X-Ray Interpretation: No Acute Disease - Physician Consult Information Outcome Of Conversation: Dr. Nash: [phone] Medical Decision Making Medical Decision Making: Time: 951 Plan: --CMP --Drug screen --Cbc with differential --Flexeril 10 mg PO --Toradol 30 mg IM --LS Spine ap/lat --Urinalysis On re-evaluation, pt. reports moderate pain relief. [address] Nash [phone] Case d/w Dr. Nash who agrees with plan and care. States pt. can f/u in his office on Saturday. Pt. informed of d/w Dr. Nash and states he will f/u with Dr. Nash. Advised to return to ED immediately if symptoms worsen. Scribe Attestation: Documented by Subhash Villavicencio, acting as a scribe for Leonidas Haywood PA-C. Provider Scribe Attestation: All medical record entries made by the Scribe were at my direction and personally dictated by me. I have reviewed the chart and agree that the record accurately reflects my personal performance of the history, physical exam, medical decision making, and the department course for this patient. I have also personally directed, reviewed, and agree with the discharge instructions and disposition. Disposition - Clinical Impression Clinical Impression: Chronic radicular pain of lower back - Patient ED Disposition Is Patient to be Admitted: No - Disposition [facility]errals: [facility] [Outside] Disposition: Routine/Home Disposition Time: 11:43 Condition: IMPROVED Additional Instructions: FOLLOW UP WITH DR. NASH ON SATURDAY FOR FURTHER EVALUATION RETURN TO ED IMMEDIATELY IF SYMPTOMS WORSEN MICHELE SIMMONS, thank you for letting us take care of you today. Your provider was Nixon Fam III, DO and you were treated for LT FLANK PAIN. The emergency medical care you received today was directed at your acute symptoms. If you were prescribed any medication, please fill it and take as directed. It may take several days for your symptoms to resolve. Return to the Emergency Department if your symptoms worsen, do not improve, or if you have any other problems. Please contact your doctor or call one of the physicians/clinics you have been referred to that are listed on the Patient Visit Information form that is included in your discharge packet. Bring any paperwork you were given at discharge with you along with any medications you are taking to your follow up visit. Our treatment cannot replace ongoing medical care by a primary care provider outside of the emergency department. Thank you for allowing the [facility] team to be part of your care today. If you had an X-Ray or CT scan: A Radiologist will review the ED reading if any change in treatment is needed we will contact you. If you had a blood, urine, or wound culture: It will take several days for the results, if any change in treatment is needed we will contact you. If you had an STI test: It will take 48 hours for the results. Please call after 1 week if you have not heard back. Prescriptions: Meloxicam [Mobic] 1 - 2 tab PO DAILY PRN #15 tab PRN Reason: Pain Methocarbamol [Robaxin] 500 mg PO TID PRN #12 tablet PRN Reason: Muscle Spasm Instructions: Low Back Pain (DC) Forms: [facility], [facility] [employer] [facility] (Equatorial Guinean)
[2018-11-22 11:51] VITALS: BP 122/80; PULSE 83; RESP 18; TEMP 97.9
--- NOTE | 2018-11-22 17:22 | RAD ---
Date of service: 11/22/2018 PROCEDURE: Radiographs of the Lumbar Spine. HISTORY: Pain COMPARISON: No prior. FINDINGS: BONES: No acute compression fractures nor retropulsed fragments. Vertebral bodies exhibit normal stature. There is mild levoscoliosis however vertebral bodies otherwise exhibit normal alignment. Facets normally aligned.. DISC SPACES: And the minor posterior disc space narrowing seen at L5-S1 level and less so the remaining levels. OTHER FINDINGS: None. IMPRESSION: No acute fractures. Mild levoscoliosis.
== END 2018-11-22 11:50 | disposition home or self-care (01) ==
LOC: H.ER 09:01
DX: M54.5 Low back pain (principal)
CPT/HCPCS: 72100; 80053; 80324; 80345; 80346; 80349; 80353; 80358; 80361; 81003; 83992; 85025; 96374; 99284; J1885

== ENCOUNTER 2018-11-28 16:24 | Emergency (ER) | payer MEDICAID ==
[2018-11-28 16:25] VITALS: BMI 30.7
[2018-11-28 17:57] VITALS: BP 117/81; PULSE 70; RESP 18; TEMP 98.3; O2SAT 97
--- NOTE | 2018-11-28 18:24 | ED PDOC ---
HPI: General Adult Time Seen by Provider: 11/28/18 18:21 Chief Complaint (Nursing): Med Refill Chief Complaint (Provider): Med Refill History Per: Patient History/Exam Limitations: no limitations Onset/Duration Of Symptoms: Days (x1) Additional Complaint(s): 38 year old male presents to the ED requesting a refill of his Lexapro. He states he is a patient at the mental health clinic in [place] and called about his refill, but was never called back. Notes his pharmacy is [facility] in [place]. Denies any physical complaints. Past Medical History Reviewed: Historical Data, Nursing Documentation, Vital Signs Vital Signs: Last Vital Signs Temp 98.3 F 11/28/18 17:54 Pulse 70 11/28/18 17:54 Resp 18 11/28/18 17:54 BP 117/81 11/28/18 17:54 Pulse Ox 97 11/28/18 17:54 - Medical History PMH: Asthma, Back Problems, Chronic Pain (back) Denies: Chronic Kidney Disease - Surgical History Surgical History: Hernia Repair - Family History Family History: States: Unknown Family Hx - Social History Current smoker - smoking cessation education provided: No Alcohol: None Drugs: Denies - Immunization History Hx Tetanus Toxoid Vaccination: No Hx Influenza Vaccination: No Hx Pneumococcal Vaccination: No - Home Medications Home Medications: Ambulatory Orders Medication Instructions Recorded Meloxicam [Mobic] 1 - 2 tab PO DAILY PRN #15 tab 11/22/18 Methocarbamol [Robaxin] 500 mg PO TID PRN #12 tablet 11/22/18 Escitalopram [Lexapro] 10 mg PO DAILY 11/28/18 - Allergies Allergies/Adverse Reactions: Allergies Allergy/AdvReac Type Severity Reaction Status Date / Time famotidine Allergy SHORTNESS Verified 11/28/18 17:54 OF BREATH FISH Allergy SHORTNESS Verified 11/28/18 17:54 OF BREATH pantoprazole Allergy SHORTNESS Verified 11/28/18 17:54 OF BREATH Penicillins Allergy SHORTNESS Verified 11/28/18 17:54 OF BREATH tree nut Allergy SHORTNESS Verified 11/28/18 17:54 OF BREATH Review of Systems ROS Statement: Except As Marked, All Systems Reviewed And Found Negative Physical Exam - Reviewed Nursing Documentation Reviewed: Yes Vital Signs Reviewed: Yes - Physical Exam Appears: Positive for: No Acute Distress Neurologic/Psych: Positive for: Alert, Oriented (x3) - ECG O2 Sat by Pulse Oximetry: 97 (RA) Pulse Ox Interpretation: Normal Medical Decision Making Medical Decision Making: Time: 1819 Initial Impression: medication refill Initial Plan: --JOSE RAFAEL Rodríguez called [facility] pharmacy, and Lexapro script was already filled and 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 Scribe Attestation: Documented by Leonor Alford, acting as a scribe for Pia Interiano PA-C. Provider Scribe Attestation: All medical record entries made by the Scribe were at my direction and personally dictated by me. I have reviewed the chart and agree that the record accurately reflects my personal performance of the history, physical exam, medical decision making, and the department course for this patient. I have also personally directed, reviewed, and agree with the discharge instructions and disposition. Disposition - Clinical Impression Clinical Impression: Visit for [facility] health check - Disposition Referrals: [facility] [Outside] Disposition Time: 18:35 Condition: STABLE Forms: [employer] (Amharic)
== END 2018-11-28 18:34 | disposition home or self-care (01) ==
LOC: H.ER 16:24
DX: Z76.0 Encounter for issue of repeat prescription (principal)

== ENCOUNTER 2018-12-29 12:51 | Emergency (ER) | payer MEDICAID ==
[2018-12-29 12:52] VITALS: BMI 30.7
[2018-12-29 13:06] VITALS: BP 141/89; TEMP 96.5
[2018-12-29] MEDS ORDERED: Lidocaine 5% Patch TD STA (13:18)
--- NOTE | 2018-12-29 13:33 | ED PDOC ---
HPI: Back Time Seen by Provider: 12/29/18 13:08 Chief Complaint (Nursing): Lower Extremity Problem/Injury Chief Complaint (Provider): Left lower back pin History Per: Patient History/Exam Limitations: no limitations Onset/Duration Of Symptoms: Hrs Current Symptoms Are (Timing): Still Present Quality Of Discomfort: "Pain" Previous Symptoms: Back Pain Associated Symptoms: None Exacerbating Factor(s): Movement Additional History Per: Patient Additional Complaint(s): 38yo male, comes to ER reporting left lower back pain since earlier this morning. Patient states he was walking to work when he developed the pain, which radiates to his left leg and into his left foot. He reports a history of herniated disks and states the current symptoms are similar to prior episodes of back pain exacerbation. Patient states he usually takes Robaxin with relief, however, he did not have pain relief today. Otherwise, denies any trauma, weakness, numbness, tingling, fever, chills, abdominal pain, numbness, tingling, dysuria, hematuria, bowel/bladder incontinence, or saddle anesthesia. No additional complaints. PMD: Dr. Garnica Past Medical History Reviewed: Historical Data, Nursing Documentation, Vital Signs Vital Signs: Last Vital Signs Temp 96.5 F L 12/29/18 13:04 Pulse 71 12/29/18 13:04 Resp 17 12/29/18 13:04 BP 141/89 12/29/18 13:04 Pulse Ox 94 L 12/29/18 13:04 - Medical History PMH: Asthma, Back Problems, Chronic Pain (back) Denies: Chronic Kidney Disease - Surgical History Surgical History: Hernia Repair - Family History Family History: States: Unknown Family Hx - Immunization History Hx Tetanus Toxoid Vaccination: No Hx Influenza Vaccination: No Hx Pneumococcal Vaccination: No - Home Medications Home Medications: Ambulatory Orders Medication Instructions Recorded Meloxicam [Mobic] 1 - 2 tab PO DAILY PRN #15 tab 11/22/18 Methocarbamol [Robaxin] 500 mg PO TID PRN #12 tablet 11/22/18 Escitalopram [Lexapro] 10 mg PO DAILY 11/28/18 Metaxalone [Skelaxin] 800 mg PO TID PRN #12 tablet 12/29/18 RX: Naproxen [Naprosyn] 500 mg PO BID PRN #10 tab 12/29/18 - Allergies Allergies/Adverse Reactions: Allergies Allergy/AdvReac Type Severity Reaction Status Date / Time famotidine Allergy SHORTNESS Verified 12/29/18 13:03 OF BREATH FISH Allergy SHORTNESS Verified 12/29/18 13:03 OF BREATH pantoprazole Allergy SHORTNESS Verified 12/29/18 13:03 OF BREATH Penicillins Allergy SHORTNESS Verified 12/29/18 13:03 OF BREATH tree nut Allergy SHORTNESS Verified 12/29/18 13:03 OF BREATH Review of Systems ROS Statement: Except As Marked, All Systems Reviewed And Found Negative Constitutional: Negative for: Fever, Chills Gastrointestinal: Negative for: Abdominal Pain Genitourinary Male: Negative for: Dysuria, Frequency, Incontinence, Hematuria Musculoskeletal: Positive for: Back Pain Neurological: Negative for: Weakness, Numbness Physical Exam - Reviewed Nursing Documentation Reviewed: Yes Vital Signs Reviewed: Yes - Physical Exam Appears: Positive for: Non-toxic, No Acute Distress Head Exam: Positive for: ATRAUMATIC, NORMAL INSPECTION, NORMOCEPHALIC Skin: Positive for: Normal Color Eye Exam: Positive for: Normal appearance Neck: Positive for: Supple Cardiovascular/Chest: Positive for: Regular Rate, Rhythm Respiratory: Positive for: Normal Breath Sounds Pulses-Dorsalis Pedis (L): 2+ Pulses-Dorsalis Pedis (R): 2+ Gastrointestinal/Abdominal: Positive for: Normal Exam, Soft Back: Positive for: Muscle Spasm, Other (mild left paralumbar tenderness). Negative for: L CVA Tenderness, R CVA Tenderness, Vertebral Tenderness Extremity: Positive for: Normal ROM, Other (+ left leg straigt raise tenderness as 30 degrees). Negative for: Deformity Neurologic/Psych: Positive for: Alert, Oriented, Other (5/5 strength to lower extremities). Negative for: Motor/Sensory Deficits - ECG O2 Sat by Pulse Oximetry: 94 (RA) Medical Decision Making Medical Decision Making: Impression: 38yo male with history of herniated disks, comes complaining of left lower back pain Plan: -- Flexeril 10mg PO -- Toradol 30mg IM -- Lidoderm patch 1430 On reassessment, patient reports improvement in pain. Patient is stable for discharge home, and is instructed to follow up wit PMD in 2-3 days. Scribe Attestation: Documented by Rubi Lomax, acting as a scribe for KEATON Grover. Provider Scribe Attestation: All medical record entries made by the Scribe were at my direction and personally dictated by me. I have reviewed the chart and agree that the record accurately reflects my personal performance of the history, physical exam, medical decision making, and the department course for this patient. I have also personally directed, reviewed, and agree with the discharge instructions and disposition. Disposition - Clinical Impression Clinical Impression: Chronic radicular pain of lower back - Patient ED Disposition Is Patient to be Admitted: No - Disposition Referrals: [facility] [Outside] Disposition: Routine/Home Disposition Time: 14:07 Condition: IMPROVED Additional Instructions: FOLLOW UP WITH DR. PACE FOR FURTHER EVALUATION. RETURN TO ED IMMEDIATELY IF SYMPTOMS WORSEN AZUCENA SIMMONS, thank you for letting us take care of you today. Your provider was Lynn Solorzano MD and you were treated for LT LEG PAIN,BACK PAIN. The emergency medical care you received today was directed at your acute symptoms. If you were prescribed any medication, please fill it and take as directed. It may take several days for your symptoms to resolve. Return to the Emergency Department if your symptoms worsen, do not improve, or if you have any other problems. Please contact your doctor or call one of the physicians/clinics you have been referred to that are listed on the Patient Visit Information form that is included in your discharge packet. Bring any paperwork you were given at discharge with you along with any medications you are taking to your follow up visit. Our treatment cannot replace ongoing medical care by a primary care provider outside of the emergency department. Thank you for allowing the [facility] team to be part of your care today. If you had an X-Ray or CT scan: A Radiologist will review the ED reading if any change in treatment is needed we will contact you. If you had a blood, urine, or wound culture: It will take several days for the results, if any change in treatment is needed we will contact you. If you had an STI test: It will take 48 hours for the results. Please call after 1 week if you have not heard back. Prescriptions: Metaxalone [Skelaxin] 800 mg PO TID PRN #12 tablet PRN Reason: Muscle Spasm RX: Naproxen [Naprosyn] 500 mg PO BID PRN #10 tab PRN Reason: Pain Instructions: Radiculopathy (DC) Forms: [facility] (Citizen Of [place]) Print Language: SERBIAN
[2018-12-29] MEDS ORDERED: Lidocaine 5% Patch TD ONE (14:33)
[2018-12-29 14:38] VITALS: PULSE 66; RESP 18
[2018-12-29 20:53] VITALS: O2SAT 94
== END 2018-12-29 14:50 | disposition home or self-care (01) ==
LOC: H.ER 12:51
DX: M54.5 Low back pain (principal); G89.29 Other chronic pain; J45.909 Unspecified asthma, uncomplicated; Z88.0 Allergy status to penicillin
CPT/HCPCS: 96372; 99283; J1885

== ENCOUNTER 2019-01-06 19:36 | Emergency (ER) | payer MEDICAID ==
[2019-01-06 19:36] VITALS: BMI 30.7
[2019-01-06 20:03] VITALS: BP 131/85; PULSE 79; RESP 16; TEMP 98; O2SAT 98
--- NOTE | 2019-01-06 21:46 | ED PDOC ---
HPI: Back Time Seen by Provider: 01/06/19 20:09 Chief Complaint (Nursing): Lower Extremity Problem/Injury Chief Complaint (Provider): Back Pain History Per: Patient History/Exam Limitations: no limitations Onset/Duration Of Symptoms: Intermittent Episodes (x6 months) Current Symptoms Are (Timing): Still Present Additional Complaint(s): 38 year old male presents to the ED for evaluation of intermittent left sided lower back pain for the past six months radiating to his left leg. Patient was seen here last week and received a shot which relieved symptoms up until today when his back pain was triggered walking up stairs. He notes that the medications prescribed the last time he was here did not work for him in the past, so he did not fill them, since this back pain is consistent with episodes he has had in the past. Patient reports having a scheduled apt in two days with Dr. Nash, a back specialist. Otherwise denies dysuria, hematuria, fever, chills, weakness, and incontinence. PMD: [facility] Past Medical History Reviewed: Historical Data, Nursing Documentation, Vital Signs Vital Signs: Last Vital Signs Temp 98 F 01/06/19 20:01 Pulse 79 01/06/19 20:01 Resp 16 01/06/19 20:01 BP 131/85 01/06/19 20:01 Pulse Ox 98 01/06/19 20:01 - Medical History PMH: Asthma, Back Problems (herniated disk), Chronic Pain (back) Denies: Chronic Kidney Disease - Surgical History Surgical History: Hernia Repair - Family History Family History: States: Unknown Family Hx - Social History Current smoker - smoking cessation education provided: No Alcohol: None Drugs: Denies - Immunization History Hx Tetanus Toxoid Vaccination: No Hx Influenza Vaccination: No Hx Pneumococcal Vaccination: No - Home Medications Home Medications: Ambulatory Orders Medication Instructions Recorded Meloxicam [Mobic] 1 - 2 tab PO DAILY PRN #15 tab 11/22/18 Methocarbamol [Robaxin] 500 mg PO TID PRN #12 tablet 11/22/18 Escitalopram [Lexapro] 10 mg PO DAILY 11/28/18 Metaxalone [Skelaxin] 800 mg PO TID PRN #12 tablet 12/29/18 RX: Naproxen [Naprosyn] 500 mg PO BID PRN #10 tab 12/29/18 RX: tiZANidine [Zanaflex] 1 - 2 tab PO BID PRN #10 tab 01/06/19 - Allergies Allergies/Adverse Reactions: Allergies Allergy/AdvReac Type Severity Reaction Status Date / Time famotidine Allergy SHORTNESS Verified 12/29/18 13:03 OF BREATH FISH Allergy SHORTNESS Verified 12/29/18 13:03 OF BREATH pantoprazole Allergy SHORTNESS Verified 12/29/18 13:03 OF BREATH Penicillins Allergy SHORTNESS Verified 12/29/18 13:03 OF BREATH tree nut Allergy SHORTNESS Verified 12/29/18 13:03 OF BREATH STEROID Allergy RASH Uncoded 01/06/19 20:00 Review of Systems ROS Statement: Except As Marked, All Systems Reviewed And Found Negative Constitutional: Negative for: Fever, Chills Genitourinary Male: Negative for: Dysuria, Incontinence, Hematuria Musculoskeletal: Positive for: Back Pain (left sided radiating to left leg) Neurological: Negative for: Weakness Physical Exam - Reviewed Nursing Documentation Reviewed: Yes Vital Signs Reviewed: Yes - Physical Exam Appears: Positive for: No Acute Distress Gastrointestinal/Abdominal: Positive for: Normal Exam, Soft. Negative for: Tenderness Back: Positive for: Normal Inspection, Muscle Spasm (left para lumbar). Negative for: L CVA Tenderness, R CVA Tenderness, Vertebral Tenderness Extremity: Positive for: Other (bilateral lower extremity strength 5/5) - ECG O2 Sat by Pulse Oximetry: 98 (RA) Pulse Ox Interpretation: Normal - Progress Condition: Re-examined, Improved Medical Decision Making Medical Decision Making: Time: 2021 Initial Impression: chronic back pain Initial Plan: --Toradol 30mg IM ----- Scribe Attestation: Documented by Leonor Alford, acting as a scribe for Leonidas Haywood PA-C. Provider Scribe Attestation: All medical record entries made by the Scribe were at my direction and personally dictated by me. I have reviewed the chart and agree that the record accurately reflects my personal performance of the history, physical exam, medical decision making, and the department course for this patient. I have also personally directed, reviewed, and agree with the discharge instructions and disposition. Disposition - Clinical Impression Clinical Impression: Chronic low back pain - Patient ED Disposition Is Patient to be Admitted: No - Disposition Disposition: Routine/Home Disposition Time: 21:20 Condition: IMPROVED Additional Instructions: FOLLOW UP WITH DR. NASH ON SATURDAY PREVIOUSLY SCHEDULED RETURN TO ED IMMEDIATELY IF SYMPTOMS WORSEN AZUCENA SIMMONS, thank you for letting us take care of you today. Your provider was Emerson Wisdom MD and you were treated for LEFT LEG PAIN. The emergency medical care you received today was directed at your acute symptoms. If you were prescribed any medication, please fill it and take as directed. It may take several days for your symptoms to resolve. Return to the Emergency Department if your symptoms worsen, do not improve, or if you have any other problems. Please contact your doctor or call one of the physicians/clinics you have been referred to that are listed on the Patient Visit Information form that is included in your discharge packet. Bring any paperwork you were given at discharge with you along with any medications you are taking to your follow up visit. Our treatment cannot replace ongoing medical care by a primary care provider outside of the emergency department. Thank you for allowing the [facility] team to be part of your care today. If you had an X-Ray or CT scan: A Radiologist will review the ED reading if any change in treatment is needed we will contact you. If you had a blood, urine, or wound culture: It will take several days for the results, if any change in treatment is needed we will contact you. If you had an STI test: It will take 48 hours for the results. Please call after 1 week if you have not heard back. Prescriptions: RX: tiZANidine [Zanaflex] 1 - 2 tab PO BID PRN #10 tab PRN Reason: Muscle Spasm Instructions: Low Back Pain (DC) Forms: [facility] ([place]ese)
== END 2019-01-06 21:36 | disposition home or self-care (01) ==
LOC: H.ER 19:36
DX: M54.5 Low back pain (principal); G89.29 Other chronic pain; J45.909 Unspecified asthma, uncomplicated; Z88.0 Allergy status to penicillin
CPT/HCPCS: 96372; 99283; J1885

== ENCOUNTER 2019-01-14 13:20 | Emergency (ER) | payer MEDICAID ==
[2019-01-14 13:21] VITALS: BMI 30.7
[2019-01-14 14:24] VITALS: BP 112/67; PULSE 71; RESP 16; TEMP 97.6; O2SAT 98
[2019-01-14] MEDS ORDERED: Lidocaine 5% Patch TD STA (15:15)
--- NOTE | 2019-01-14 15:18 | ED PDOC ---
HPI: Back Time Seen by Provider: 01/14/19 14:44 Chief Complaint (Nursing): Back Pain Chief Complaint (Provider): Back Pain History Per: Patient History/Exam Limitations: no limitations Onset/Duration Of Symptoms: Persistent (chronic) Current Symptoms Are (Timing): Still Present Quality Of Discomfort: "Pain" Previous Symptoms: Back Pain Associated Symptoms: None Additional Complaint(s): 38 year old male presents to the ED for evaluation of acute on chronic left sided back pain radiating to his left leg. Patient was seen here twice in the last two weeks for the same symptoms. Patient was told by his PMD he needs to see a spine surgeon or orthopedist, however he has not done so yet. He is well known to this facility for frequent visits. He reports that he was just walking when he developed present symptoms. Patient notes that the muscle relaxer prescribed for him does not work so he takes pain killers, but does not know the name. He took said medication today but is unsure what time. Denies recent falls or trauma. No numbness/weakness, urinary symptoms, incontinence, N/V/D, abdomina l pain, chest pain, SOB, recent fever. PMD: Dr. Bandar Man Past Medical History Reviewed: Historical Data, Nursing Documentation, Vital Signs Vital Signs: Last Vital Signs Temp 97.6 F 01/14/19 14:20 Pulse 71 01/14/19 14:20 Resp 16 01/14/19 14:20 BP 112/67 01/14/19 14:20 Pulse Ox 98 01/14/19 14:20 - Medical History PMH: Asthma, Back Problems (herniated disk), Chronic Pain (back) - Surgical History Surgical History: Hernia Repair - Family History Family History: States: Unknown Family Hx - Home Medications Home Medications: Ambulatory Orders Medication Instructions Recorded Meloxicam [Mobic] 1 - 2 tab PO DAILY PRN #15 tab 11/22/18 Methocarbamol [Robaxin] 500 mg PO TID PRN #12 tablet 11/22/18 Escitalopram [Lexapro] 10 mg PO DAILY 11/28/18 Metaxalone [Skelaxin] 800 mg PO TID PRN #12 tablet 12/29/18 RX: Naproxen [Naprosyn] 500 mg PO BID PRN #10 tab 12/29/18 RX: tiZANidine [Zanaflex] 1 - 2 tab PO BID PRN #10 tab 01/06/19 - Allergies Allergies/Adverse Reactions: Allergies Allergy/AdvReac Type Severity Reaction Status Date / Time famotidine Allergy SHORTNESS Verified 01/14/19 14:22 OF BREATH FISH Allergy SHORTNESS Verified 01/14/19 14:22 OF BREATH pantoprazole Allergy SHORTNESS Verified 01/14/19 14:22 OF BREATH Penicillins Allergy SHORTNESS Verified 01/14/19 14:22 OF BREATH tree nut Allergy SHORTNESS Verified 01/14/19 14:22 OF BREATH STEROID Allergy RASH Uncoded 01/14/19 14:22 Review of Systems ROS Statement: Except As Marked, All Systems Reviewed And Found Negative Musculoskeletal: Positive for: Back Pain, Leg Pain (radiates from back) Physical Exam - Reviewed Nursing Documentation Reviewed: Yes Vital Signs Reviewed: Yes - Physical Exam Comments: GENERAL APPEARANCE: Patient is awake, alert, oriented x 3, in no acute distress. Resting comfortably, on laptop. SKIN: Warm, dry; (-) cyanosis. ENMT: Mucous membranes moist. Airway patent, (-) stridor. NECK: Supple, FROM CHEST AND RESPIRATORY: (-) rales, (-) rhonchi, (-) wheezes; breath sounds equal bilaterally. Respirations nonlabored. HEART AND CARDIOVASCULAR: (-) irregularity ABDOMEN AND GI: Soft; (-) tenderness BACK: (+) tenderness to left paralumbar (-) spasm (-) direct bony tenderness, (- ) deformity. EXTREMITIES: (-) deformity. Distal pulses good bilaterally. NEURO AND PSYCH: Mental status as above. Intact sensation bilaterally to lower extremities. Gait: steady. Speech: clear. - ECG O2 Sat by Pulse Oximetry: 98 (RA) Pulse Ox Interpretation: Normal Medical Decision Making Medical Decision Makin:15 Clinical Impression: acute on chronic back pain Initial Plan: --Toradol 30 mg IM --Lidoderm 5% 1 ea TD --Re-evaluation 1600 On re-evaluation, patient reports improvement of symptoms. On exam, patient remains AAOx3, in no acute distress. Patient ambulatory in the ED without difficulty. Vitals stable. Lab/Diagnostic results d/w the patient in great detail. Diagnosis of acute on chronic back pain d/w the patient. Based on history, exam and diagnostic results, plan will be for outpatient follow up with PMD/ortho. Patient instructed to follow-up with pmd / referral provided / the clinic in 1- 2 days without fail. Advised to continue current pain medication. Return to the emergency room at any time for any new or worsening symptoms. Patient states he fully agrees with and understands discharge instructions. States that he agrees with the plan and disposition. Verbalized and repeated discharge instructions and plan. I have given the patient opportunity to ask any additional questions. Scribe Attestation: Documented by Charo Forbes, acting as a scribe for Corin Steele PA-C Provider Scribe Attestation: All medical record entries made by the Scribe were at my direction and personally dictated by me. I have reviewed the chart and agree that the record accurately reflects my personal performance of the history, physical exam, medical decision making, and the department course for this patient. I have also personally directed, reviewed, and agree with the discharge instructions and disposition. Disposition - Clinical Impression Clinical Impression: Chronic radicular pain of lower back - Patient ED Disposition Is Patient to be Admitted: No Counseled Patient/Family Regarding: Studies Performed, Diagnosis, Need For Followup, Rx Given - Disposition Referrals: primary, doctor [Other] Adam Limon MD [Medical Doctor] - Disposition Time: 16:00 Condition: STABLE Additional Instructions: CONTINUE YOUR NORMAL PAIN MEDICATION REGIMEN. The emergency medical care you received today was directed at your acute symptoms. If you were prescribed any medication, please fill it and take as directed. It may take several days for your symptoms to resolve. Return to the Emergency Department if your symptoms worsen, do not improve, or if you have any other problems. Please contact your doctor in 2 days for re-evaluation and follow up / or call one of the physicians/clinics you have been referred to that are listed on the Patient Visit Information form that is included in your discharge packet. Bring any paperwork you were given at discharge with you along with any medications you are taking to your follow up visit. Our treatment cannot replace ongoing medical care by a primary care provider (PCP) outside of the emergency department. Instructions: Low Back Pain in Adults, Chronic Pain (DC), Radiculopathy (DC) Forms: [employer] (Japanese) Print Language: BRUNEIAN - POA Present On Arrival: None
[2019-01-14] MEDS ORDERED: Lidocaine 5% Patch TD ONE (15:28)
== END 2019-01-14 16:22 | disposition home or self-care (01) ==
LOC: H.ER 13:20
DX: M54.9 Dorsalgia, unspecified (principal); G89.29 Other chronic pain
CPT/HCPCS: 96372; 99282; J1885

== ENCOUNTER 2019-01-15 04:38 | Emergency (ER) | payer MEDICAID ==
[2019-01-15 04:39] VITALS: BMI 30.7
[2019-01-15 04:46] VITALS: O2SAT 99
--- NOTE | 2019-01-15 05:07 | ED PDOC ---
HPI: Back Time Seen by Provider: 01/15/19 05:00 Chief Complaint (Nursing): Back Pain Chief Complaint (Provider): back pain History Per: Patient, EMS History/Exam Limitations: no limitations Additional Complaint(s): 38 y/o male brought in by EMS for evaluation of left-sided back pain x 1 hour. Patient with history of lspine disc herniations, follows with an ortho specialist for it but states the medication he was prescribed didn't help, states he does not know the name and does not have them with him. Patient states he was sleeping on a [facility] at the [facility] tonight when pain started. Denies fever, nausea/vomiting, bowel/bladder incontinence, numbness/weakness of lower extremities. Of note, patient with multiple frequent ED visits for same, last visit less than 24 hours ago Past Medical History Reviewed: Historical Data, Nursing Documentation, Vital Signs Vital Signs: Last Vital Signs Temp 99.1 F 01/15/19 04:43 Pulse 73 01/15/19 04:43 Resp 16 01/15/19 04:43 BP 118/68 01/15/19 04:43 Pulse Ox 99 01/15/19 04:43 - Medical History PMH: Asthma, Back Problems (herniated disk), Chronic Pain (back) Denies: Chronic Kidney Disease - Surgical History Surgical History: Hernia Repair - Family History Family History: States: Unknown Family Hx - Immunization History Hx Tetanus Toxoid Vaccination: No Hx Influenza Vaccination: No Hx Pneumococcal Vaccination: No - Home Medications Home Medications: Ambulatory Orders Medication Instructions Recorded Meloxicam [Mobic] 1 - 2 tab PO DAILY PRN #15 tab 11/22/18 Methocarbamol [Robaxin] 500 mg PO TID PRN #12 tablet 11/22/18 Escitalopram [Lexapro] 10 mg PO DAILY 11/28/18 Metaxalone [Skelaxin] 800 mg PO TID PRN #12 tablet 12/29/18 Naproxen [Naprosyn] 500 mg PO BID PRN #10 tab 12/29/18 tiZANidine [Zanaflex] 1 - 2 tab PO BID PRN #10 tab 01/06/19 - Allergies Allergies/Adverse Reactions: Allergies Allergy/AdvReac Type Severity Reaction Status Date / Time famotidine Allergy SHORTNESS Verified 01/14/19 14:22 OF BREATH FISH Allergy SHORTNESS Verified 01/14/19 14:22 OF BREATH pantoprazole Allergy SHORTNESS Verified 01/14/19 14:22 OF BREATH Penicillins Allergy SHORTNESS Verified 01/14/19 14:22 OF BREATH tree nut Allergy SHORTNESS Verified 01/14/19 14:22 OF BREATH STEROID Allergy RASH Uncoded 01/14/19 14:22 Review of Systems ROS Statement: Except As Marked, All Systems Reviewed And Found Negative Musculoskeletal: Positive for: Back Pain Physical Exam - Reviewed Nursing Documentation Reviewed: Yes Vital Signs Reviewed: Yes - Physical Exam Appears: Positive for: Well, Non-toxic, No Acute Distress (on lap top) Cardiovascular/Chest: Positive for: Regular Rate, Rhythm Respiratory: Positive for: Normal Breath Sounds Back: Positive for: Decreased ROM (secondary to pain), Muscle Spasm (left paralumbar region). Negative for: L CVA Tenderness, R CVA Tenderness, Vertebral Tenderness Extremity: Positive for: Normal ROM Neurologic/Psych: Positive for: Alert, Oriented (x3) - ECG O2 Sat by Pulse Oximetry: 99 - Progress ED Course And Treament: -Toradol IM -valium PO On re-eval, patient reports improvement of symptoms Patient was advised to follow up with pain management Continue current medications Return precautions given Disposition - Clinical Impression Clinical Impression: Chronic back pain - Patient ED Disposition Is Patient to be Admitted: No Counseled Patient/Family Regarding: Diagnosis, Need For Followup - Disposition Referrals: [facility] [Outside] Disposition: Routine/Home Disposition Time: 06:00 Condition: IMPROVED Additional Instructions: Follow up with pain management Instructions: Chronic Pain Forms: [employer] (Japanese)
[2019-01-15 06:38] VITALS: BP 127/75; PULSE 84; RESP 17; TEMP 98.1
== END 2019-01-15 06:31 | disposition home or self-care (01) ==
LOC: H.ER 04:38
DX: M54.9 Dorsalgia, unspecified (principal); G89.29 Other chronic pain
CPT/HCPCS: 96372; 99283; J1885

== ENCOUNTER 2019-03-03 22:06 | Emergency (ER) | payer MEDICAID ==
[2019-03-03 22:06] VITALS: BMI 30.7
[2019-03-03] MEDS ORDERED: Iohexol 240 (50 ml) PO ONE (23:52)
[2019-03-03] MEDS ORDERED: Sodium Chloride 0.9% 1,000 ML IV STA (23:55)
--- NOTE | 2019-03-03 23:55 | ED PDOC ---
HPI: Abdomen Time Seen by Provider: 03/03/19 23:26 Chief Complaint (Nursing): Abdominal Pain Chief Complaint (Provider): abdominal pain History Per: Patient History/Exam Limitations: no limitations Onset/Duration Of Symptoms: Days (2) Current Symptoms Are (Timing): Still Present Location Of Pain/Discomfort: LLQ Quality Of Discomfort: Cramping, "Pain" Associated Symptoms: Diarrhea Last Bowel Movement: Today Additional Complaint(s): 38 y/o male presents for evaluation of lower abdominal pain x 24 hours. Associated multiple episodes of diarrhea. Patient states he was having fecal incontinence problems 6 months back and was diagnosed with IBS by his Hose Inspector; patient states he has not any symptoms until yesterday. Denies fever, nausea/vomiting, chest pain, shortness of breath, palpitations, urinary symptoms, recent travel, sick contacts Past Medical History Reviewed: Historical Data, Nursing Documentation, Vital Signs Vital Signs: Last Vital Signs Temp 98.1 F 03/03/19 22:41 Pulse 73 03/03/19 22:41 Resp 18 03/03/19 22:41 BP 125/89 03/03/19 22:41 Pulse Ox 98 03/03/19 22:41 - Medical History PMH: Asthma, Back Problems (herniated disk), Chronic Pain (back) Denies: Chronic Kidney Disease - Surgical History Surgical History: Hernia Repair - Family History Family History: States: Unknown Family Hx - Immunization History Hx Tetanus Toxoid Vaccination: No Hx Influenza Vaccination: No Hx Pneumococcal Vaccination: No - Home Medications Home Medications: Ambulatory Orders Medication Instructions Recorded Meloxicam [Mobic] 1 - 2 tab PO DAILY PRN #15 tab 11/22/18 Methocarbamol [Robaxin] 500 mg PO TID PRN #12 tablet 11/22/18 Escitalopram [Lexapro] 10 mg PO DAILY 11/28/18 Metaxalone [Skelaxin] 800 mg PO TID PRN #12 tablet 12/29/18 Naproxen [Naprosyn] 500 mg PO BID PRN #10 tab 12/29/18 tiZANidine [Zanaflex] 1 - 2 tab PO BID PRN #10 tab 01/06/19 Dicyclomine [Bentyl] 20 mg PO TID #21 tab 03/04/19 - Allergies Allergies/Adverse Reactions: Allergies Allergy/AdvReac Type Severity Reaction Status Date / Time famotidine Allergy SHORTNESS Verified 03/03/19 22:41 OF BREATH FISH Allergy SHORTNESS Verified 03/03/19 22:41 OF BREATH pantoprazole Allergy SHORTNESS Verified 03/03/19 22:41 OF BREATH Penicillins Allergy SHORTNESS Verified 03/03/19 22:41 OF BREATH tree nut Allergy SHORTNESS Verified 03/03/19 22:41 OF BREATH STEROID Allergy RASH Uncoded 03/03/19 22:41 Review of Systems ROS Statement: Except As Marked, All Systems Reviewed And Found Negative Gastrointestinal: Positive for: Abdominal Pain, Diarrhea Physical Exam - Reviewed Nursing Documentation Reviewed: Yes Vital Signs Reviewed: Yes - Physical Exam Appears: Positive for: Well, Non-toxic, No Acute Distress Head Exam: Positive for: ATRAUMATIC, NORMAL INSPECTION, NORMOCEPHALIC Skin: Positive for: Normal Color Eye Exam: Positive for: Normal appearance ENT: Positive for: Normal ENT Inspection Cardiovascular/Chest: Positive for: Regular Rate, Rhythm Respiratory: Positive for: Normal Breath Sounds Gastrointestinal/Abdominal: Positive for: Bowel Sounds, Soft, Tenderness (LLQ). Negative for: Distended, Guarding, Rebound Back: Positive for: Normal Inspection Extremity: Positive for: Normal ROM Neurological/Psych: Positive for: Awake, Alert, Oriented (x3) - Laboratory Results Result Diagrams: 03/04/19 00:10 03/04/19 00:10 - ECG O2 Sat by Pulse Oximetry: 98 - Progress ED Course And Treament: -cbc -cmp -lipase -urinalysis -CT abd/pelvis -PO bentyl CT SCAN OF THE ABDOMEN AND PELVIS WITH CONTRAST. CLINICAL HISTORY: Abdominal pain. TECHNIQUE: Multiple axial and coronal CT images were obtained through the abdomen and pelvis after administration of intravenous and oral contrast material. Comparison: 04/16/2018 11:52 AM EDT: CT\\SD: ABD PELVIS PO IV CONTRAST. COMMENTS: Uncomplicated colonic diverticulosis. Moderate amount of fecal residue is noted in the large bowels. Surgical changes of the gastroesophageal junction. Moderate amount of food residue in the stomach. Mild amount of fecal residue in the large bowels. The liver is of uniform attenuation without mass or defect. There is no intra or extrahepatic biliary ductal dilatation. The spleen is normal. The gallbladder is within normal limits. The pancreas is of normal contour and attenuation characteristics. There is no evidence of adrenal mass. Both kidneys demonstrate prompt and equal nephrograms. The kidneys are normal in size, shape and configuration. There is no evidence of renal or ureteral mass. No renal or ureteral calculi are identified. There is no hydroureter or hydronephrosis. No evidence for appendicitis. There is no bowel wall thickening. No evidence for small or large bowel obstruction. There is no evidence of abdominal ascites or lymphadenopathy. There is no evidence of intrinsic or extrinsic bladder mass. There is no pelvic ascites or lymphadenopathy. Images of the lung bases show no evidence of pleural or parenchymal mass. There are no pleural effusions. The bony structures are free of lytic or blastic lesions. IMPRESSION: Uncomplicated colonic diverticulosis. Moderate amount of fecal residue is noted in the large bowels. Surgical changes of the gastroesophageal junction. Moderate amount of food residue in the stomach. Gastroparesis. Mild amount of fecal residue in the large bowels. Mild constipation. No evidence of acute abdominal or pelvic pathology Patient resting comfortably on re-eval Patient educated on findings, discharged with rx Bentyl Advised follow up GI within 2-3 days Return precautions given Disposition - Clinical Impression Clinical Impression: Abdominal pain, Diarrhea - Patient ED Disposition Is Patient to be Admitted: No Counseled Patient/Family Regarding: Studies Performed, Diagnosis, Need For Followup, Rx Given - Disposition Disposition: Routine/Home Disposition Time: 04:07 Condition: IMPROVED Prescriptions: Dicyclomine [Bentyl] 20 mg PO TID #21 tab Instructions: Acute Abdomen (Belly Pain), Adult (DC), Diarrhea in Adolescents and Adults
[2019-03-04 00:20] LABS: BASO % 0.5 % (0.0-2.0); EOS # 0.1 K/uL (0.0-0.7); EOS % 1.9 % (0.0-4.0); HEMOGLOBIN 14.4 g/dL (12.0-18.0); LYMPH # 1.8 K/uL (1.0-4.3); LYMPH % 38.2 % (20.0-40.0); MEAN CELL VOLUME 85.6 fl (80.0-94.0); MEAN CORPUSCULAR HEMOGLOBIN 29.2 pg (27.0-31.0); MEAN CORPUSCULAR HGB CONC 34.2 g/dL (33.0-37.0); MEAN PLATELET VOLUME 8.4 fl (7.2-11.7); MONO # 0.7 K/uL (0.0-0.8); MONO % 15.2 % (0.0-10.0); NEUT % 44.2 % (50.0-75.0); NRBC % 0.2 % (0.0-0.0); RBC 4.93 Mil/uL (4.40-5.90); RED CELL DISTRIBUTION WIDTH 14.2 % (11.5-14.5); WHITE BLOOD COUNT 4.6 K/uL (4.8-10.8)
[2019-03-04 00:30] LABS: ALB/GLOB RATIO 1.5 (1.0-2.1); ALBUMIN 4.1 g/dL (3.5-5.0); ALT/SGPT 36 U/L (21-72); AST/SGOT 28 U/L (17-59); BLOOD UREA NITROGEN 21 mg/dl (9-20); CALCIUM 9.1 mg/dL (8.4-10.2); GFR NON-AFRICAN AMERICAN > 60; LIPASE 44 U/L (23-300)
[2019-03-04 01:23] LABS: URINE BILIRUBIN NEGATIVE (NEGATIVE); URINE BLOOD NEGATIVE (NEGATIVE); URINE CLARITY CLEAR (Clear); URINE COLOR YELLOW (YELLOW); URINE GLUCOSE (UA) NEG (NEGATIVE); URINE LEUKOCYTE ESTERASE NEG Leu/uL (Negative); URINE PROTEIN NEGATIVE (NEGATIVE); URINE UROBILINOGEN 0.2-1.0 mg/dL (0.2-1.0)
[2019-03-04] MEDS ORDERED: Iohexol 300 100 ML IJ ONE (02:30)
[2019-03-04] MEDS ORDERED: Sodium Chloride 0.9% 50 ML IV ONE (02:30)
[2019-03-04 03:47] VITALS: RESP 16
[2019-03-04 04:19] VITALS: BP 124/68; PULSE 71; TEMP 98.3; O2SAT 100
--- NOTE | 2019-03-04 12:26 | CT ---
Date of service: 03/04/2019 PROCEDURE: CT Abdomen and Pelvis with contrast HISTORY: lower abd pain, diarrhea COMPARISON: 04/16/2018. CT abdomen and pelvis. TECHNIQUE: Intravenous contrast dose: 95 cc Omnipaque 300. Radiation dose: Total exam DLP = 511.08 mGy-cm. This CT exam was performed using one or more of the following dose reduction techniques: Automated exposure control, adjustment of the mA and/or kV according to patient size, and/or use of iterative reconstruction technique. FINDINGS: LOWER THORAX: Unremarkable. LIVER: Unremarkable. No gross lesion or ductal dilatation. GALLBLADDER AND BILE DUCTS: Unremarkable. PANCREAS: Unremarkable. No gross lesion or ductal dilatation. SPLEEN: Stable splenomegaly. ADRENALS: Unremarkable. No mass. KIDNEYS AND URETERS: Unremarkable. No hydronephrosis. No solid mass. VASCULATURE: Unremarkable. No aortic aneurysm. No atherosclerotic calcification or mural plaque present. BOWEL: Unremarkable. No obstruction. No gross mural thickening. Gastric distension, the stomach is filled with fluid and debris. No flow abnormality or obstructing process noted. Constipation without fecal impaction or obstruction. Gastric band identified at the gastroesophageal junction. APPENDIX: Solitary appendicular lith without evidence of acute appendicitis. PERITONEUM: Unremarkable. No free fluid. No free air. LYMPH NODES: Unremarkable. No enlarged lymph nodes. BLADDER: Unremarkable. REPRODUCTIVE: Unremarkable. BONES: No acute fracture. OTHER FINDINGS: None. IMPRESSION: No acute or significant findings related to/ accounting for the clinical presentation. Additional benign and/or incidental findings described above. No significant interval change compared to the prior examination(s). Concordant results (preliminary interpretation) provided by [employer]. Procedure Completed: 02:33. Preliminary Report: Interpreted and electronically signed: 03:28. Final Interpretation:
== END 2019-03-04 04:19 | disposition home or self-care (01) ==
LOC: H.ER 22:06
DX: R10.9 Unspecified abdominal pain (principal); R19.7 Diarrhea, unspecified; K59.00 Constipation, unspecified; Z88.0 Allergy status to penicillin
CPT/HCPCS: 74177; 80053; 81003; 83690; 85025; 96374; 99283; J1885; J7030; Q9966; Q9967

== ENCOUNTER 2019-03-04 15:45 | Emergency (ER) | payer MEDICAID ==
[2019-03-04 15:45] VITALS: BMI 30.7
[2019-03-04 15:52] VITALS: BP 117/78; PULSE 82; RESP 16; TEMP 97.9; O2SAT 97
--- NOTE | 2019-03-04 16:39 | ED PDOC ---
HPI: Back Time Seen by Provider: 03/04/19 16:09 Chief Complaint (Nursing): Abdominal Pain Chief Complaint (Provider): Back pain History Per: Patient History/Exam Limitations: no limitations Additional Complaint(s): Pt reports L lower back pain X 6 months, radiates down L leg, has been evaluated by Ortho and Neurosurgery, dx with herniated disc that does not warrant surgery. Was evaluated in this ED yesterday for abdominal pain, CT negative. Pt states he after BM he feels like he leaks a little. Denies paresthesias, weakness. Able to ambulate without difficulty. Past Medical History Reviewed: Nursing Documentation, Vital Signs Vital Signs: Last Vital Signs Temp 97.9 F 03/04/19 15:51 Pulse 82 03/04/19 15:51 Resp 16 03/04/19 15:51 BP 117/78 03/04/19 15:51 Pulse Ox 97 03/04/19 15:51 - Medical History PMH: Asthma, Back Problems (herniated disk), Chronic Pain (back) Denies: Chronic Kidney Disease - Surgical History Surgical History: Hernia Repair - Family History Family History: States: Unknown Family Hx - Social History Current smoker - smoking cessation education provided: No Alcohol: None - Immunization History Hx Tetanus Toxoid Vaccination: No Hx Influenza Vaccination: No Hx Pneumococcal Vaccination: No - Home Medications Home Medications: Ambulatory Orders Medication Instructions Recorded Meloxicam [Mobic] 1 - 2 tab PO DAILY PRN #15 tab 11/22/18 Methocarbamol [Robaxin] 500 mg PO TID PRN #12 tablet 11/22/18 Escitalopram [Lexapro] 10 mg PO DAILY 11/28/18 Metaxalone [Skelaxin] 800 mg PO TID PRN #12 tablet 12/29/18 Naproxen [Naprosyn] 500 mg PO BID PRN #10 tab 12/29/18 tiZANidine [Zanaflex] 1 - 2 tab PO BID PRN #10 tab 01/06/19 Dicyclomine [Bentyl] 20 mg PO TID PRN #21 tab 03/04/19 Lidocaine 5% [Lidoderm] 1 ea TD DAILY PRN #10 patch 03/04/19 - Allergies Allergies/Adverse Reactions: Allergies Allergy/AdvReac Type Severity Reaction Status Date / Time famotidine Allergy SHORTNESS Verified 03/03/19 22:41 OF BREATH FISH Allergy SHORTNESS Verified 03/03/19 22:41 OF BREATH pantoprazole Allergy SHORTNESS Verified 03/03/19 22:41 OF BREATH Penicillins Allergy SHORTNESS Verified 03/03/19 22:41 OF BREATH tree nut Allergy SHORTNESS Verified 03/03/19 22:41 OF BREATH STEROID Allergy RASH Uncoded 03/03/19 22:41 Review of Systems Constitutional: Negative for: Fever Musculoskeletal: Positive for: Back Pain, Leg Pain Skin: Negative for: Rash, Lesions Neurological: Negative for: Weakness, Numbness, Headache Physical Exam - Reviewed Nursing Documentation Reviewed: Yes Vital Signs Reviewed: Yes - Physical Exam Appears: Positive for: Well, No Acute Distress Head Exam: Positive for: ATRAUMATIC, NORMAL INSPECTION Skin: Positive for: Normal Color, Warm, Dry Eye Exam: Positive for: Normal appearance, EOMI, PERRL Neck: Positive for: Normal, Painless ROM, Supple Cardiovascular/Chest: Positive for: Regular Rate, Rhythm Respiratory: Positive for: Normal Breath Sounds Gastrointestinal/Abdominal: Positive for: Normal Exam, Bowel Sounds, Soft. Negative for: Tenderness Back: Positive for: Normal Inspection, Other (TTP L lower back). 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 Negative for: Motor/Sensory Deficits - ECG O2 Sat by Pulse Oximetry: 97 Medical Decision Making Medical Decision Makin yo male chronic L lower back/leg pain. - Rx Lidoderm Disposition - Clinical Impression Clinical Impression: Chronic low back pain - Disposition Referrals: [facility] [Outside] Disposition: Routine/Home Disposition Time: 17:03 Condition: STABLE Additional Instructions: FOLLOW-UP WITH [facility] ON 03/06/19 @ 4 PM. Prescriptions: Lidocaine 5% [Lidoderm] 1 ea TD DAILY PRN #10 patch PRN Reason: Pain, Moderate (4-7) Instructions: Low Back Pain in Adults Forms: [employer] [facility] ([place])
[2019-03-04] MEDS ORDERED: Lidocaine 5% Patch TD STA (17:08)
[2019-03-04] MEDS ORDERED: Lidocaine 5% Patch TD ONE (17:44)
== END 2019-03-04 17:57 | disposition home or self-care (01) ==
LOC: H.ER 15:45
DX: M54.5 Low back pain (principal)

== ENCOUNTER 2019-04-18 19:08 | Emergency (ER) | payer MEDICAID ==
[2019-04-18 19:08] VITALS: BMI 30.7
[2019-04-18 19:13] VITALS: BP 135/85; PULSE 79; RESP 16; TEMP 98.7; O2SAT 98
--- NOTE | 2019-04-18 19:30 | ED PDOC ---
Upper Extremity Pain/Injury Time Seen by Provider: 04/18/19 19:18 Chief Complaint (Nursing): Upper Extremity Problem/Injury Chief Complaint (Provider): Upper Extremity Problem/Injury History Per: Patient History/Exam Limitations: no limitations Onset/Duration Of Symptoms: Mins Current Symptoms Are (Timing): Still Present Quality: Other ("stabbing") Additional Complaint(s): 38 y/o male with a PMHx of Depression, Anxiety, scoliosis, and lumbar disc hernias presents to the ED for evaluation of left shoulder pain, onset 2 hours ago. Patient reports he was sitting at a [employer], typing on his computer when he suddenly developed a pain to his left posterior shoulder. Patient describes pain as if "someone was stabbing me with a pen". Patient states pain worsens when lifting his arm. Reports it is non radiating, just in one area. Otherwise, patient denies fall, heavy lifting, chest pain, shortness of breath, cardiac history, neck pain. Patient notes of never experiencing this pain before. PMD: Bandar Man. Past Medical History Reviewed: Historical Data, Nursing Documentation, Vital Signs Vital Signs: Last Vital Signs Temp 98.7 F 04/18/19 19:11 Pulse 79 04/18/19 19:11 Resp 16 04/18/19 19:11 BP 135/85 04/18/19 19:11 Pulse Ox 98 04/18/19 19:11 Primary Care Provider: Bandar Man - Medical History PMH: Anxiety, Asthma, Back Problems (herniated disk), Depression, Chronic Pain (back) Denies: Chronic Kidney Disease Other PMH: scoliosos - Surgical History Surgical History: Hernia Repair - Family History Family History: States: No Known Family Hx - Social History Current smoker - smoking cessation education provided: No - Immunization History Hx Tetanus Toxoid Vaccination: No Hx Influenza Vaccination: No Hx Pneumococcal Vaccination: No - Home Medications Home Medications: Ambulatory Orders Medication Instructions Recorded Meloxicam [Mobic] 1 - 2 tab PO DAILY PRN #15 tab 11/22/18 Methocarbamol [Robaxin] 500 mg PO TID PRN #12 tablet 11/22/18 Escitalopram [Lexapro] 10 mg PO DAILY 11/28/18 Metaxalone [Skelaxin] 800 mg PO TID PRN #12 tablet 12/29/18 Naproxen [Naprosyn] 500 mg PO BID PRN #10 tab 12/29/18 tiZANidine [Zanaflex] 1 - 2 tab PO BID PRN #10 tab 01/06/19 Dicyclomine [Bentyl] 20 mg PO TID PRN #21 tab 03/04/19 Lidocaine 5% [Lidoderm] 1 ea TD DAILY PRN #10 patch 03/04/19 Cyclobenzaprine [Cyclobenzaprine 10 mg PO TID PRN #12 tab 04/18/19 HCl] - Allergies Allergies/Adverse Reactions: Allergies Allergy/AdvReac Type Severity Reaction Status Date / Time famotidine Allergy SHORTNESS Verified 03/03/19 22:41 OF BREATH FISH Allergy SHORTNESS Verified 03/03/19 22:41 OF BREATH pantoprazole Allergy SHORTNESS Verified 03/03/19 22:41 OF BREATH Penicillins Allergy SHORTNESS Verified 03/03/19 22:41 OF BREATH tree nut Allergy SHORTNESS Verified 03/03/19 22:41 OF BREATH STEROID Allergy RASH Uncoded 03/03/19 22:41 Review of Systems ROS Statement: Except As Marked, All Systems Reviewed And Found Negative Cardiovascular: Negative for: Chest Pain Respiratory: Negative for: Other (DYSPNEA) Musculoskeletal: Positive for: Shoulder Pain. Negative for: Neck Pain Physical Exam - Reviewed Nursing Documentation Reviewed: Yes Vital Signs Reviewed: Yes - Physical Exam Comments: GENERAL APPEARANCE: Patient is awake, alert, oriented x 3, in no acute distress. SKIN: Warm, dry; (-) cyanosis. CHEST AND RESPIRATORY: (-) chest wall tenderness. Lungs: (-) rales, (-) rhonchi, (-) wheezes; breath sounds equal bilaterally. HEART AND CARDIOVASCULAR: (-) irregularity; (-) murmur, (-) gallop. EXTREMITIES: (+) pulse 2+, capillary refill < 2 seconds, LUE: (+) limited flexion and abduction at the shoulder secondary to pain, (+) point Tenderness to palpation at the left trapezius, (-) swelling, (-) ecchymosis. (-) deformity. (-) distal neurovascular deficit. Elbow, hand and digits: (-) tenderness. (+) 5/5 strength noted at the upper extremities. 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 NEURO AND PSYCH: Mental status as above. (-) motor or sensory deficits. - ECG O2 Sat by Pulse Oximetry: 98 (RA) Pulse Ox Interpretation: Normal Medical Decision Making Medical Decision Making: Time: 1924 Impression: Muscular Pain Pt with point tenderness to trapezius muscles, worse with ROM, no cardiac history, VSS Plan: -- Flexeril 10 mg PO -- Toradol 30 mg IM -- Shoulder LEFT 3 Views XR Time: 2016 XR: no fracture, no dislocation as read by Maxi Allen PA-C. informed pt he will be contacted if any discrepancies with radiology read Time: 2032 -- On re-evaluation, patient reports symptoms/pain has now resolved. On repeat exam, Full ROM is noted to the left shoulder without pain. Patient notes of feeling much better at this time. Patient is stable for discharge home. Discussed results, diagnosis, treatment, return precautions and f/u with pt who is understanding, in agreement and stable for dc Scribe Attestation: Documented by Bettye Fontaine, acting as a scribe Fabiola Allen PA-C. Provider Scribe Attestation: All medical record entries made by the Scribe were at my direction and personally dictated by me. I have reviewed the chart and agree that the record accurately reflects my personal performance of the history, physical exam, medical decision making, and the department course for this patient. I have also personally directed, reviewed, and agree with the discharge instructions and disposition. Disposition - Clinical Impression Clinical Impression: Shoulder pain, Trapezius muscle spasm - Patient ED Disposition Is Patient to be Admitted: No Counseled Patient/Family Regarding: Studies Performed, Diagnosis, Need For Followup - Disposition Referrals: Bandar Man MD [Staff Provider] - Disposition: Routine/Home Disposition Time: 20:33 Condition: STABLE Additional Instructions: Thank you for letting us take care of you today. The emergency medical care you received today was directed at your acute symptoms. If you were prescribed any medication, please fill it and take as directed. Do not drive or drink alcohol when taking flexeril. It may take several days for your symptoms to resolve. Return to the Emergency Department if your symptoms worsen, do not improve, or if you have any other problems. Please contact your doctor in 2 days for re-evaluation and follow up / or call o ne of the physicians/clinics you have been referred to that are listed on the Patient Visit Information form that is included in your discharge packet. Bring any paperwork you were given at discharge with you along with any medications you are taking to your follow up visit. Our treatment cannot replace ongoing medical care by a primary care provider (PCP) outside of the emergency department. Prescriptions: Cyclobenzaprine [Cyclobenzaprine HCl] 10 mg PO TID PRN #12 tab PRN Reason: muscle pain Instructions: Muscle Spasms (DC), Shoulder Pain (DC) Print Language: DANISH - POA Present On Arrival: None
--- NOTE | 2019-04-19 17:11 | RAD ---
Date of service: 04/18/2019 PROCEDURE: Radiographs of the Left Shoulder HISTORY: pain COMPARISON: No prior. TECHNIQUE: 3 views obtained. FINDINGS: BONES: Normal. No fracture. JOINTS: Normal. Glenohumeral and acromioclavicular joints preserved. No osteoarthritis. SOFT TISSUES: Normal. OTHER FINDINGS: None. IMPRESSION: Normal radiographs of the left shoulder.
== END 2019-04-18 21:16 | disposition home or self-care (01) ==
LOC: H.ER 19:08
DX: M25.512 Pain in left shoulder (principal); M62.838 Other muscle spasm
CPT/HCPCS: 73030; 96372; 99283; J1885

== ENCOUNTER 2019-04-24 12:26 | Emergency (ER) | payer MEDICAID ==
[2019-04-24 12:26] VITALS: BMI 30.7
[2019-04-24 12:31] VITALS: RESP 18; O2SAT 96
--- NOTE | 2019-04-24 14:03 | RAD ---
Date of service: 04/24/2019 PROCEDURE: Radiographs of the Right Shoulder HISTORY: Rule out fracture or dislocation. COMPARISON: No prior. TECHNIQUE: 3 views obtained. FINDINGS: BONES: No definitive radiographic evidence of acute displaced fracture nor dislocation. JOINTS: Glenohumeral and acromioclavicular joints preserved. No significant osteoarthritis. SOFT TISSUES: Normal. OTHER FINDINGS: None. IMPRESSION: Limited single view. No definitive radiographic evidence of acute displaced fracture nor dislocation.
--- NOTE | 2019-04-24 14:13 | ED PDOC ---
Upper Extremity Pain/Injury Time Seen by Provider: 04/24/19 12:42 Chief Complaint (Nursing): Upper Extremity Problem/Injury Chief Complaint (Provider): Right Shoulder Pain History Per: Patient History/Exam Limitations: no limitations Onset/Duration Of Symptoms: Hrs Additional Complaint(s): 38 year old male with history of lumbar discarnation who presents with right shoulder pain since this morning. He states that he went to cough and twisted funny suddenly he had severe right shoulder pain and was unable to move right arm since then due to pain. Patient denies fall, trauma, fever, chills, numbness, tingling, and reports no medication taken. Of note, he was last seen in ED on 04/18 for left shoulder pain which has since resolved and Xrays were unremarkable at that time. Patient further states he has history of left shoulder dislocation and feels like right shoulder is dislocated. PMD: none provided Past Medical History Reviewed: Historical Data, Nursing Documentation, Vital Signs Vital Signs: Last Vital Signs Temp 98.2 F 04/24/19 12:27 Pulse 82 04/24/19 12:27 Resp 18 04/24/19 12:27 BP 118/75 04/24/19 12:27 Pulse Ox 96 04/24/19 12:27 Primary Care Provider: FAMILY PROVIDER,NO - Medical History PMH: Anxiety, Asthma, Back Problems (herniated disk), Depression, Chronic Pain (back) Denies: Chronic Kidney Disease - Surgical History Surgical History: Hernia Repair - Family History Family History: States: Unknown Family Hx - Social History Current smoker - smoking cessation education provided: No Alcohol: None Drugs: Denies - Immunization History Hx Tetanus Toxoid Vaccination: No Hx Influenza Vaccination: No Hx Pneumococcal Vaccination: No - Home Medications Home Medications: Ambulatory Orders Medication Instructions Recorded Meloxicam [Mobic] 1 - 2 tab PO DAILY PRN #15 tab 11/22/18 Methocarbamol [Robaxin] 500 mg PO TID PRN #12 tablet 11/22/18 Escitalopram [Lexapro] 10 mg PO DAILY 11/28/18 Metaxalone [Skelaxin] 800 mg PO TID PRN #12 tablet 12/29/18 Naproxen [Naprosyn] 500 mg PO BID PRN #10 tab 12/29/18 tiZANidine [Zanaflex] 1 - 2 tab PO BID PRN #10 tab 02/05/19 Dicyclomine [Bentyl] 20 mg PO TID PRN #21 tab 03/04/19 Lidocaine 5% [Lidoderm] 1 ea TD DAILY PRN #10 patch 03/04/19 Cyclobenzaprine [Cyclobenzaprine 10 mg PO TID PRN #12 tab 04/18/19 HCl] Ibuprofen [Motrin Tab] 600 mg PO Q6 PRN 7 Days tab 04/24/19 - Allergies Allergies/Adverse Reactions: Allergies Allergy/AdvReac Type Severity Reaction Status Date / Time famotidine Allergy SHORTNESS Verified 03/03/19 22:41 OF BREATH FISH Allergy SHORTNESS Verified 03/03/19 22:41 OF BREATH pantoprazole Allergy SHORTNESS Verified 03/03/19 22:41 OF BREATH Penicillins Allergy SHORTNESS Verified 03/03/19 22:41 OF BREATH tree nut Allergy SHORTNESS Verified 03/03/19 22:41 OF BREATH STEROID Allergy RASH Uncoded 03/03/19 22:41 Review of Systems ROS Statement: Except As Marked, All Systems Reviewed And Found Negative Constitutional: Negative for: Fever, Chills, Other (fall or trauma) Musculoskeletal: Positive for: Shoulder Pain (right, unable to move right arm due to pain) Neurological: Negative for: Numbness (or tingling) Physical Exam - Reviewed Nursing Documentation Reviewed: Yes Vital Signs Reviewed: Yes - Physical Exam Appears: Positive for: Uncomfortable Neck: Positive for: Normal, Painless ROM, Supple Pulses-Radial (L): 2+ Pulses-Radial (R): 2+ Extremity: Positive for: Tenderness (right shoulder with loss of humoral head curvature on inspection and palpation), Capillary Refill (less than 2 seconds), Other (sensation to light touch intact in right hand, normal flexion and extension at right wrist). Negative for: Normal ROM (decreased ROM with flexion extension abduction at right shoulder as well as elbow) Neurological/Psych: Positive for: Alert, Oriented (x3) - ECG O2 Sat by Pulse Oximetry: 96 (RA) Pulse Ox Interpretation: Normal Medical Decision Making Medical Decision Making: Time: 1311 Initial Impression: Initial Plan: --Toradol 30 mg IV x1 --Right shoulder Xray 1324 Shoulder Xray FINDINGS: BONES: No definitive radiographic evidence of acute displaced fracture nor dislocation. JOINTS: Glenohumeral and acromioclavicular joints preserved. No significant osteoarthritis. SOFT TISSUES: Normal. OTHER FINDINGS: None. IMPRESSION: Limited single view. No definitive radiographic evidence of acute displaced fracture nor dislocation. 1405 Patient was reevaluated and morphine 2 mg IV ordered. He reports no improvement in pain with Toradol. 1504 Patient reevaluated and states pain is gone from 9/10 to maybe 7/10. He remains unable to flex or extend or abduct at the right shoulder both actively and passively. He has tenderness on palpation of right lateral arm so right humerus Xray ordered. [facility] website queried and no history of narcotic prescription noted. 1546 Humerus Xrays showed no dislocation or fracture. Patient states pain improved slightly and better ROM so sling was applied and he was advised to take Ibuprofen for pain and follow up with orthopedist. Patient may have tendon or ligament injury but is otherwise medically stable and ready for discharge. Scribe Attestation: Documented by Isaiah Crowe, acting as a scribe for Veronica Cruz PA-C Provider Scribe Attestation: All medical record entries made by the Scribe were at my direction and personally dictated by me. I have reviewed the chart and agree that the record accurately reflects my personal performance of the history, physical exam, medical decision making, and the department course for this patient. I have also personally directed, reviewed, and agree with the discharge instructions and disposition. Disposition - Clinical Impression Clinical Impression: Shoulder pain - Patient ED Disposition Is Patient to be Admitted: No Counseled Patient/Family Regarding: Studies Performed, Diagnosis, Need For Followup, Rx Given - Disposition Referrals: Mahendra Lim III, MD [Staff Provider] - Disposition: Routine/Home Disposition Time: 15:46 Condition: STABLE Additional Instructions: Follow up with orthopedist as planned. Take Ibuprofen or Tylenol for pain and use sling for comfort. Return to ER if your symptoms worsen. Prescriptions: Ibuprofen [Motrin Tab] 600 mg PO Q6 PRN 7 Days tab PRN Reason: Pain, Moderate (4-7) Forms: [facility] (Divehi) Print Language: LATVIAN
[2019-04-24 15:58] VITALS: BP 140/93; PULSE 88; TEMP 98.5
--- NOTE | 2019-04-24 16:48 | RAD ---
Date of service: 04/24/2019 PROCEDURE: Radiographs of the Right Shoulder HISTORY: r/o dislocation vs subluxation COMPARISON: No prior. TECHNIQUE: 3 views obtained. FINDINGS: BONES: Technically limited examination. No evidence of fracture. No true external rotation view submitted. JOINTS: Normal. Glenohumeral and acromioclavicular joints preserved. No osteoarthritis. SOFT TISSUES: Normal. OTHER FINDINGS: None. IMPRESSION: No acute fracture. Technically limited examination.
--- NOTE | 2019-04-24 16:53 | RAD ---
PROCEDURE: Radiographs of the right humerus. HISTORY: point tenderness at Right lateral humerus, dec ROM COMPARISON: None. TECHNIQUE: 2 views obtained. FINDINGS: BONES: Normal. No fracture or focal lesion. SOFT TISSUES: Normal. OTHER FINDINGS: None. IMPRESSION: Normal radiographs of right humerus.
== END 2019-04-24 15:56 | disposition home or self-care (01) ==
LOC: H.ER 12:26
DX: M25.511 Pain in right shoulder (principal); F41.9 Anxiety disorder, unspecified
CPT/HCPCS: 73020; 73030; 73060; 96374; 96375; 99283; J1885; J2270